=== PATIENT | male | born 1940 | race Caucasian/White ===

== ENCOUNTER 2018-05-02 16:52 | Inpatient (IN) | payer MEDICARE, BC, OTHER ==
[~2018-05-02] VITALS: Ht 177.8 cm; Wt 120.4 kg
[~2018-05-02 16:52] MED LIST: ALLO100T PO; ASPI-10 PO; CARV25TA PO; CHOL400T57 PO; CLOP75TA35 PO; CYA500T PO; FISH12002 PO; FURO40TA4 PO; GLIP5TAB13 PO; IRON150C5 PO; MAGN64TA8 PO; MULT1TAB PO; NITR0.4T51 SL; OMEG1CAP54 PO; PANT-47 PO; POTA20TA19 PO; SIMV20TA5 PO; SPIR25TA5 PO
[2018-05-02] MEDS ORDERED: normal saline 1000ML IV soln IV ONE (17:30)
[2018-05-02 18:07] LABS: BASOPHILS % (AUTO) 0.3 % (0-1); EOSINOPHILS # (AUTO) 0.4 X10'3 (0-0.9); HEMATOCRIT 35.6 % (42.0-52.0); HEMOGLOBIN 11.9 g/dl (14.0-17.9); LYMPHOCYTES # (AUTO) 1.6 X10'3 (1.1-4.8); LYMPHOCYTES % (AUTO) 13.8 % (21-51); MEAN CORPUSCULAR HEMOGLOBIN 31.2 PG (27.0-31.0); MEAN CORPUSCULAR HGB CONC 33.3 % (33.0-36.5); MEAN CORPUSCULAR VOLUME 93.7 FL (78-98); MEAN PLATELET VOLUME 6.7 FL (7.4-10.4); MONOCYTES # (AUTO) 0.8 X10'3 (0-0.9); MONOCYTES % (AUTO) 6.9 % (2-12); NEUTROPHILS # (AUTO) 8.7 X10'3 (1.8-7.7); PLATELET COUNT 382 X10'3 (140-440); RED CELL DISTRIBUTION WIDTH 14.5 % (11.5-14.5); WHITE BLOOD COUNT 11.5 X10'3 (4.5-11.0)
[2018-05-02 18:23] LABS: PARTIAL THROMBOPLASTIN TIME 33 SECONDS (22-32); PROTHROMBIN TIME 10.6 SECONDS (9.0-12.0)
[2018-05-02 18:34] LABS: ALANINE AMINOTRANSFERASE 17 U/L (12-78); ALBUMIN 3.6 G/DL (3.4-5.0); ALBUMIN/GLOBULIN RATIO 0.8 (1.1-1.5); ALKALINE PHOSPHATASE 73 IU/L (46-116); ANION GAP 11 (8-16); ASPARTATE AMINO TRANSFERASE 11 U/L (10-37); BILIRUBIN,TOTAL 0.5 MG/DL (0.1-1.0); BLOOD UREA NITROGEN 34 MG/DL (7-18); BUN/CREATININE RATIO 15.2 (5.4-32.0); CALCIUM 9.3 MG/DL (8.5-10.1); CHLORIDE 101 MMOL/L (99-107); CREATININE 2.24 MG/DL (0.60-1.10); GLUCOSE 141 MG/DL (70-104); MAGNESIUM 2.7 MG/DL (1.5-2.4); POTASSIUM 4.7 MMOL/L (3.5-5.1); SODIUM 138 MMOL/L (135-145); TOTAL CARBON DIOXIDE 25.7 MMOL/L (24-32); TOTAL PROTEIN 8.4 G/DL (6.4-8.2); eGFR 28 ML/MIN
[2018-05-02] MEDS ORDERED: ondansetron/PF 4mg/2ml inj IV ONE (18:40)
[2018-05-02] MEDS ORDERED: HYDROmorphone inj. 0.5 MG/0.5 ML DISP.SYRIN IV ONE (18:40)
[2018-05-02] MEDS ORDERED: CLOP75TA35 PO (19:08)
[2018-05-02] MEDS ORDERED: HYDR-3965 PO (19:08)
[2018-05-02] MEDS ORDERED: ERGO500014 PO (19:08)
[2018-05-02] MEDS ORDERED: SIMV20TA5 PO (19:08)
[2018-05-02] MEDS ORDERED: FURO-150 PO (19:08)
[2018-05-02] MEDS ORDERED: POTA20TA19 PO ×2 (19:08)
[2018-05-02] MEDS ORDERED: TERB30CR22 TP (19:08)
[2018-05-02] MEDS ORDERED: ALLO100T PO (19:08)
[2018-05-02] MEDS ORDERED: SPIR25TA5 PO (19:08)
[2018-05-02 19:11] LABS: CLARITY,URINE CLEAR (Clear); COLOR,URINE YELLOW (Yellow); GLUCOSE, URINE NEGATIVE (Neg); KETONES,URINE NEGATIVE (Neg); LEUKOCYTE ESTERASE ,URINE NEGATIVE (Neg); NITRITES, URINE NEGATIVE (Neg); OCCULT BLOOD,URINE NEGATIVE (Neg); PH,URINE 7.5 (4.8-8.0); PROTEIN,URINE NEGATIVE (Neg); UROBILINOGEN,URINE 0.2 E.U/dL (0.2-1.0)
[2018-05-02 19:17] LABS: UA COLLECTION TYPE CLN CATCH MIDSTREAM
[2018-05-02] MEDS ORDERED: vancomycin inj 1,000 MG in normal saline 250ml IV soln 250 ML IV ONE (19:30)
[2018-05-02] MEDS ORDERED: vancomycin/NS 1 GM ADD-VANTAGE 250 ML IV ONE (19:34)
[2018-05-02] MEDS ORDERED: acetaminophen 325mg tablet PO PRN (20:10)
[2018-05-02] MEDS ORDERED: magnesium hydroxide 30ml (MOM) UD suspension PO PRN (20:10)
[2018-05-02] MEDS ORDERED: dextrose ORAL solution 15 GM/59 ML bottle PO PRN ×2 (20:10)
[2018-05-02] MEDS ORDERED: insulin Lispro (HumaLOG) vial - multi-dose SQ SCH (20:10)
[2018-05-02] MEDS ORDERED: glucagon, human recombinant 1mg kit SUBCUT PRN (20:10)
[2018-05-02] MEDS ORDERED: nitroGLYCERIN 0.4mg SUBLingual tab SL PRN (20:10)
[2018-05-02] MEDS ORDERED: dextrose 50%-water 50ml dispensing syringe IV PRN ×2 (20:10)
[2018-05-02] MEDS ORDERED: MESSAGE TO PHARMACY PO ONE (20:10)
[2018-05-02 20:32] LABS: HEMOGLOBIN A1C 7.8 % (4.5-6.2)
[2018-05-02] MEDS ORDERED: vancomycin inj 500 MG in normal saline 100ml IV soln 100 ML IV ONE (20:55)
[2018-05-02] MEDS: normal saline 1000ml 1,000 ML IV SCH (20:57)
[2018-05-02] MEDS: furosemide 40mg tablet PO SCH (20:58)
[2018-05-02] MEDS: HYDROcodone/acetaminophen 5mg/325mg tablet PO PRN (20:58)
[2018-05-02] MEDS: spironolactone 25 MG tablet PO SCH (20:58)
[2018-05-02] MEDS: atorvastatin 10mg tablet PO SCH (20:58)
[2018-05-02] MEDS ORDERED: vancomycin/NS 1 GM ADD-VANTAGE 250 ML X 1 DOSE IV ONE (21:05)
[2018-05-02] MEDS: ciprofloxacin 250mg tablet PO SCH (21:53)
[2018-05-02 23:00] VITALS: BP 125/66
[2018-05-03] MEDS: HYDROcodone/acetaminophen 5mg/325mg tablet PO PRN ×4 (02:24→20:36)
[2018-05-03 06:25] LABS: BASOPHILS % (AUTO) 0.5 % (0-1); EOSINOPHILS # (AUTO) 0.4 X10'3 (0-0.9); HEMOGLOBIN 10.3 g/dl (14.0-17.9); LYMPHOCYTES # (AUTO) 1.1 X10'3 (1.1-4.8); LYMPHOCYTES % (AUTO) 13.2 % (21-51); MEAN CORPUSCULAR HEMOGLOBIN 31.1 PG (27.0-31.0); MEAN CORPUSCULAR HGB CONC 33.1 % (33.0-36.5); MEAN CORPUSCULAR VOLUME 93.9 FL (78-98); MEAN PLATELET VOLUME 6.7 FL (7.4-10.4); MONOCYTES # (AUTO) 0.7 X10'3 (0-0.9); NEUTROPHILS # (AUTO) 6.2 X10'3 (1.8-7.7); NEUTROPHILS % (AUTO) 73.3 % (42-75); PLATELET COUNT 316 X10'3 (140-440); RED CELL DISTRIBUTION WIDTH 14.4 % (11.5-14.5); WHITE BLOOD COUNT 8.5 X10'3 (4.5-11.0)
[2018-05-03 06:43] LABS: ANION GAP 9 (8-16); BLOOD UREA NITROGEN 27 MG/DL (7-18); BUN/CREATININE RATIO 14.1 (5.4-32.0); CHLORIDE 106 MMOL/L (99-107); CREATININE 1.91 MG/DL (0.60-1.10); GLUCOSE 130 MG/DL (70-104); POTASSIUM 3.6 MMOL/L (3.5-5.1); SODIUM 139 MMOL/L (135-145); TOTAL CARBON DIOXIDE 23.6 MMOL/L (24-32); eGFR 34 ML/MIN
[2018-05-03 06:44] LABS: ALANINE AMINOTRANSFERASE 12 U/L (12-78); ALBUMIN 2.9 G/DL (3.4-5.0); ALBUMIN/GLOBULIN RATIO 0.7 (1.1-1.5); ALKALINE PHOSPHATASE 59 IU/L (46-116); ASPARTATE AMINO TRANSFERASE 9 U/L (10-37); BILIRUBIN,TOTAL 0.4 MG/DL (0.1-1.0); CALCIUM 8.3 MG/DL (8.5-10.1)
[2018-05-03] MEDS ORDERED: OMEGA-3/DHA/EPA/FISH OIL 1 EACH CAPSULE.DR PO SCH (07:30)
[2018-05-03 07:33] VITALS: BP 108/57
[2018-05-03] MEDS ORDERED: clopidogrel 75mg tablet PO SCH (08:00)
[2018-05-03] MEDS: furosemide 40mg tablet PO SCH ×3 (08:11→20:36)
[2018-05-03] MEDS: carVEDilol 12.5mg tablet PO SCH ×2 (08:11→19:24)
[2018-05-03] MEDS: potassium Cl 20 mEq SR tablet PO SCH ×2 (08:11→16:24)
[2018-05-03] MEDS: pantoprazole 40mg Tablet.DR PO SCH (08:11)
[2018-05-03] MEDS: allopurinol 100mg tablet PO SCH (08:11)
[2018-05-03] MEDS: heparin, porcine 5000 units/ml vial SQ SCH ×2 (08:13→19:25)
[2018-05-03] MEDS ORDERED: magnesium Cl slow-release 64mg tablet PO PRN (09:35)
[2018-05-03] MEDS ORDERED: potassium Cl 40MEQ/NS 500ml 500 ML IV PRN ×2 (09:35)
[2018-05-03] MEDS ORDERED: potassium Cl 20 mEq SR tablet PO PRN ×2 (09:35)
[2018-05-03] MEDS ORDERED: magnesium 4gm in 100ml NS 100 ML IV PRN (09:35)
[2018-05-03] MEDS: ciprofloxacin 250mg tablet PO SCH (10:21)
[2018-05-03 11:00] VITALS: BP 112/56
[2018-05-03] MEDS ORDERED: FERR325T28 PO (11:20)
[2018-05-03] MEDS ORDERED: ASPI-1264 PO (11:20)
[2018-05-03] MEDS ORDERED: LORA10TA65 PO (12:27)
[2018-05-03] MEDS: loratadine 10mg tablet PO PRN (13:09)
[2018-05-03] MEDS: piperacillin/tazo 3.375gm/50ml 50 ML IV SCH ×2 (14:13→19:24)
[2018-05-03] MEDS: lactobacillus rhamnosus 10,000 MMU CELLS/CAPSULE PO SCH (19:24)
[2018-05-03 20:00] VITALS: BP 125/64
[2018-05-03] MEDS: atorvastatin 10mg tablet PO SCH (20:37)
[2018-05-04] VITALS: BP 114/44
[2018-05-04] MEDS: piperacillin/tazo 3.375gm/50ml 50 ML IV SCH ×3 (01:14→14:50)
[2018-05-04] MEDS: HYDROcodone/acetaminophen 5mg/325mg tablet PO PRN ×3 (01:18→19:20)
[2018-05-04 06:24] LABS: BASOPHILS # (AUTO) 0.1 X10'3 (0-0.2); BASOPHILS % (AUTO) 0.7 % (0-1); EOSINOPHILS # (AUTO) 0.5 X10'3 (0-0.9); EOSINOPHILS % (AUTO) 7.3 % (0-6); HEMATOCRIT 30.2 % (42.0-52.0); HEMOGLOBIN 10.1 g/dl (14.0-17.9); LYMPHOCYTES # (AUTO) 1.3 X10'3 (1.1-4.8); MEAN CORPUSCULAR HEMOGLOBIN 31.2 PG (27.0-31.0); MEAN CORPUSCULAR HGB CONC 33.4 % (33.0-36.5); MEAN CORPUSCULAR VOLUME 93.4 FL (78-98); MEAN PLATELET VOLUME 7.1 FL (7.4-10.4); MONOCYTES # (AUTO) 0.6 X10'3 (0-0.9); MONOCYTES % (AUTO) 8.3 % (2-12); NEUTROPHILS # (AUTO) 4.9 X10'3 (1.8-7.7); NEUTROPHILS % (AUTO) 65.7 % (42-75); PLATELET COUNT 307 X10'3 (140-440); RED BLOOD COUNT 3.23 X10'6 (4.70-6.10); RED CELL DISTRIBUTION WIDTH 14.4 % (11.5-14.5); WHITE BLOOD COUNT 7.5 X10'3 (4.5-11.0)
[2018-05-04 06:52] LABS: ALANINE AMINOTRANSFERASE 14 U/L (12-78); ALBUMIN 2.8 G/DL (3.4-5.0); ALBUMIN/GLOBULIN RATIO 0.7 (1.1-1.5); ALKALINE PHOSPHATASE 54 IU/L (46-116); ANION GAP 10 (8-16); ASPARTATE AMINO TRANSFERASE 11 U/L (10-37); BILIRUBIN,TOTAL 0.6 MG/DL (0.1-1.0); BLOOD UREA NITROGEN 26 MG/DL (7-18); BUN/CREATININE RATIO 12.3 (5.4-32.0); CALCIUM 8.3 MG/DL (8.5-10.1); CHLORIDE 103 MMOL/L (99-107); CREATININE 2.11 MG/DL (0.60-1.10); GLUCOSE 135 MG/DL (70-104); MAGNESIUM 2.1 MG/DL (1.5-2.4); PHOSPHORUS 3.2 MG/DL (2.3-4.5); POTASSIUM 3.6 MMOL/L (3.5-5.1); SODIUM 139 MMOL/L (135-145); TOTAL CARBON DIOXIDE 26.1 MMOL/L (24-32); eGFR 30 ML/MIN
[2018-05-04] MEDS: allopurinol 100mg tablet PO SCH (07:41)
[2018-05-04] MEDS: clopidogrel 75mg tablet PO SCH (07:41)
[2018-05-04] MEDS: furosemide 40mg tablet PO SCH ×3 (07:42→20:33)
[2018-05-04] MEDS: heparin, porcine 5000 units/ml vial SQ SCH ×2 (07:42→19:16)
[2018-05-04] MEDS: lactobacillus rhamnosus 10,000 MMU CELLS/CAPSULE PO SCH ×2 (07:42→19:14)
[2018-05-04] MEDS: carVEDilol 12.5mg tablet PO SCH ×2 (07:42→19:15)
[2018-05-04] MEDS: potassium Cl 20 mEq SR tablet PO SCH ×2 (07:42→16:21)
[2018-05-04] MEDS: pantoprazole 40mg Tablet.DR PO SCH (07:42)
[2018-05-04 08:00] VITALS: BP 121/62
[2018-05-04] MEDS: loratadine 10mg tablet PO PRN (10:14)
[2018-05-04] MEDS: ondansetron/PF 4mg/2ml inj IV PRN ×2 (11:27→17:51)
[2018-05-04 12:00] VITALS: BP 122/64
[2018-05-04] MEDS: mag hydrox/Alum hydrox/simeth 30ml oral suspension PO PRN (16:21)
[2018-05-04] MEDS ORDERED: metoclopramide 5 mg/ml inj IV ONE (18:50)
[2018-05-04 19:00] VITALS: BP 103/49
[2018-05-04] MEDS: spironolactone 25 MG tablet PO SCH (19:15)
[2018-05-04] MEDS: gabapentin 300mg capsule PO SCH (19:21)
[2018-05-04] MEDS: piperacillin-tazo 2.25gm/50ml 50 ML IV SCH (19:27)
[2018-05-04] MEDS: atorvastatin 10mg tablet PO SCH (20:33)
[2018-05-04] MEDS: normal saline 1000ml 1,000 ML IV SCH (20:34)
[2018-05-04 20:35] VITALS: BP 108/52
[2018-05-05] VITALS: BP 100/56
[2018-05-05] MEDS: piperacillin-tazo 2.25gm/50ml 50 ML IV SCH ×2 (01:31→09:17)
[2018-05-05] MEDS: mag hydrox/Alum hydrox/simeth 30ml oral suspension PO PRN (03:59)
[2018-05-05] MEDS: ondansetron/PF 4mg/2ml inj IV PRN (04:00)
[2018-05-05 06:36] LABS: BASOPHILS # (AUTO) 0.1 X10'3 (0-0.2); BASOPHILS % (AUTO) 0.7 % (0-1); EOSINOPHILS # (AUTO) 0.4 X10'3 (0-0.9); EOSINOPHILS % (AUTO) 5.5 % (0-6); HEMATOCRIT 29.7 % (42.0-52.0); HEMOGLOBIN 9.9 g/dl (14.0-17.9); LYMPHOCYTES # (AUTO) 1.4 X10'3 (1.1-4.8); LYMPHOCYTES % (AUTO) 18.7 % (21-51); MEAN CORPUSCULAR HEMOGLOBIN 30.8 PG (27.0-31.0); MEAN CORPUSCULAR HGB CONC 33.4 % (33.0-36.5); MEAN CORPUSCULAR VOLUME 92.3 FL (78-98); MEAN PLATELET VOLUME 7.6 FL (7.4-10.4); MONOCYTES # (AUTO) 0.6 X10'3 (0-0.9); MONOCYTES % (AUTO) 8.3 % (2-12); NEUTROPHILS # (AUTO) 5.2 X10'3 (1.8-7.7); NEUTROPHILS % (AUTO) 66.8 % (42-75); PLATELET COUNT 320 X10'3 (140-440); RED BLOOD COUNT 3.21 X10'6 (4.70-6.10); RED CELL DISTRIBUTION WIDTH 14.2 % (11.5-14.5); WHITE BLOOD COUNT 7.7 X10'3 (4.5-11.0)
[2018-05-05 07:16] LABS: ALANINE AMINOTRANSFERASE 16 U/L (12-78); ALBUMIN/GLOBULIN RATIO 0.7 (1.1-1.5); ALKALINE PHOSPHATASE 70 IU/L (46-116); ANION GAP 11 (8-16); ASPARTATE AMINO TRANSFERASE 12 U/L (10-37); BILIRUBIN,TOTAL 0.6 MG/DL (0.1-1.0); BLOOD UREA NITROGEN 26 MG/DL (7-18); BUN/CREATININE RATIO 11.2 (5.4-32.0); CALCIUM 8.8 MG/DL (8.5-10.1); CHLORIDE 101 MMOL/L (99-107); CREATININE 2.33 MG/DL (0.60-1.10); GLUCOSE 155 MG/DL (70-104); PHOSPHORUS 2.8 MG/DL (2.3-4.5); POTASSIUM 3.7 MMOL/L (3.5-5.1); SODIUM 137 MMOL/L (135-145); TOTAL CARBON DIOXIDE 25.3 MMOL/L (24-32); TOTAL PROTEIN 7.5 G/DL (6.4-8.2); eGFR 27 ML/MIN
[2018-05-05 08:08] VITALS: BP 126/48
[2018-05-05] MEDS: lactobacillus rhamnosus 10,000 MMU CELLS/CAPSULE PO SCH ×2 (08:26→19:12)
[2018-05-05] MEDS: pantoprazole 40mg Tablet.DR PO SCH (08:27)
[2018-05-05] MEDS: allopurinol 100mg tablet PO SCH (08:27)
[2018-05-05] MEDS: potassium Cl 20 mEq SR tablet PO SCH ×2 (08:27→17:11)
[2018-05-05] MEDS: carVEDilol 12.5mg tablet PO SCH ×2 (08:28→19:12)
[2018-05-05] MEDS: gabapentin 300mg capsule PO SCH ×2 (08:28→19:12)
[2018-05-05] MEDS: furosemide 40mg tablet PO SCH ×2 (08:28→20:34)
[2018-05-05] MEDS: heparin, porcine 5000 units/ml vial SQ SCH ×2 (08:29→19:15)
[2018-05-05] MEDS: loratadine 10mg tablet PO PRN (08:34)
[2018-05-05] MEDS: HYDROcodone/acetaminophen 5mg/325mg tablet PO PRN ×2 (09:16→14:46)
[2018-05-05 11:00] VITALS: BP 127/58
[2018-05-05] MEDS ORDERED: levoFLOXACIN-Levaquin 500mg/D5 100 ML IV SCH (13:30)
[2018-05-05] MEDS: aspirin 81mg tablet.DR PO SCH (14:38)
[2018-05-05] MEDS: metroNIDAZOLE-Flagyl 500mg/NS 100 ML IV SCH ×2 (17:11→23:33)
[2018-05-05] MEDS ORDERED: VANCOMYCIN LEVEL IV ONE (20:30)
[2018-05-05] MEDS: atorvastatin 10mg tablet PO SCH (20:34)
[2018-05-06] VITALS: BP 103/46
[2018-05-06] MEDS: HYDROcodone/acetaminophen 5mg/325mg tablet PO PRN ×2 (01:06→22:07)
[2018-05-06 06:04] LABS: BASOPHILS % (AUTO) 0.4 % (0-1); EOSINOPHILS # (AUTO) 0.5 X10'3 (0-0.9); EOSINOPHILS % (AUTO) 7.3 % (0-6); HEMATOCRIT 29.1 % (42.0-52.0); HEMOGLOBIN 9.7 g/dl (14.0-17.9); LYMPHOCYTES # (AUTO) 1.2 X10'3 (1.1-4.8); LYMPHOCYTES % (AUTO) 17.8 % (21-51); MEAN CORPUSCULAR HEMOGLOBIN 30.9 PG (27.0-31.0); MEAN CORPUSCULAR HGB CONC 33.4 % (33.0-36.5); MEAN CORPUSCULAR VOLUME 92.4 FL (78-98); MEAN PLATELET VOLUME 6.7 FL (7.4-10.4); MONOCYTES # (AUTO) 0.7 X10'3 (0-0.9); NEUTROPHILS # (AUTO) 4.4 X10'3 (1.8-7.7); NEUTROPHILS % (AUTO) 64.5 % (42-75); PLATELET COUNT 339 X10'3 (140-440); RED BLOOD COUNT 3.14 X10'6 (4.70-6.10); RED CELL DISTRIBUTION WIDTH 14.4 % (11.5-14.5); WHITE BLOOD COUNT 6.8 X10'3 (4.5-11.0)
[2018-05-06 06:10] LABS: ALANINE AMINOTRANSFERASE 17 U/L (12-78); ALBUMIN 2.8 G/DL (3.4-5.0); ALBUMIN/GLOBULIN RATIO 0.6 (1.1-1.5); ALKALINE PHOSPHATASE 59 IU/L (46-116); ANION GAP 10 (8-16); ASPARTATE AMINO TRANSFERASE 10 U/L (10-37); BILIRUBIN,TOTAL 0.4 MG/DL (0.1-1.0); BLOOD UREA NITROGEN 30 MG/DL (7-18); BUN/CREATININE RATIO 13.8 (5.4-32.0); CHLORIDE 103 MMOL/L (99-107); CREATININE 2.17 MG/DL (0.60-1.10); GLUCOSE 157 MG/DL (70-104); MAGNESIUM 2.1 MG/DL (1.5-2.4); PHOSPHORUS 3.1 MG/DL (2.3-4.5); POTASSIUM 4.2 MMOL/L (3.5-5.1); SODIUM 139 MMOL/L (135-145); TOTAL CARBON DIOXIDE 26.2 MMOL/L (24-32); TOTAL PROTEIN 7.3 G/DL (6.4-8.2); eGFR 29 ML/MIN
[2018-05-06 07:06] VITALS: BP 113/54
[2018-05-06] MEDS: metroNIDAZOLE-Flagyl 500mg/NS 100 ML IV SCH (08:10)
[2018-05-06] MEDS: lactobacillus rhamnosus 10,000 MMU CELLS/CAPSULE PO SCH ×2 (08:10→20:24)
[2018-05-06] MEDS: potassium Cl 20 mEq SR tablet PO SCH ×2 (08:11→16:43)
[2018-05-06] MEDS: gabapentin 300mg capsule PO SCH ×2 (08:12→20:24)
[2018-05-06] MEDS: aspirin 81mg tablet.DR PO SCH (08:12)
[2018-05-06] MEDS: pantoprazole 40mg Tablet.DR PO SCH (08:12)
[2018-05-06] MEDS: furosemide 40mg tablet PO SCH ×2 (08:12→20:24)
[2018-05-06] MEDS: allopurinol 100mg tablet PO SCH (08:12)
[2018-05-06] MEDS: carVEDilol 12.5mg tablet PO SCH ×2 (08:13→20:24)
[2018-05-06] MEDS: heparin, porcine 5000 units/ml vial SQ SCH ×3 (08:13→21:24)
[2018-05-06 12:00] VITALS: BP 121/77
[2018-05-06] MEDS: metroNIDAZOLE 500mg tablet PO SCH ×2 (16:43→23:22)
[2018-05-06] MEDS: normal saline 1000ml 1,000 ML IV SCH (20:06)
[2018-05-06 20:15] VITALS: BP 122/58
[2018-05-06] MEDS: atorvastatin 10mg tablet PO SCH (20:24)
[2018-05-06] MEDS: spironolactone 25 MG tablet PO SCH (20:24)
[2018-05-06 21:28] VITALS: BP 122/58
[2018-05-07] VITALS (16 sets, daily range): BP systolic 105–137; BP diastolic 50–79
[2018-05-07] MEDS: loratadine 10mg tablet PO PRN (01:03)
[2018-05-07] MEDS: HYDROcodone/acetaminophen 5mg/325mg tablet PO PRN ×3 (06:03→20:42)
[2018-05-07 06:52] LABS: BASOPHILS % (AUTO) 0.4 % (0-1); EOSINOPHILS # (AUTO) 0.6 X10'3 (0-0.9); EOSINOPHILS % (AUTO) 8.9 % (0-6); HEMATOCRIT 30.5 % (42.0-52.0); HEMOGLOBIN 10.1 g/dl (14.0-17.9); LYMPHOCYTES # (AUTO) 1.3 X10'3 (1.1-4.8); LYMPHOCYTES % (AUTO) 21.2 % (21-51); MEAN CORPUSCULAR HEMOGLOBIN 30.7 PG (27.0-31.0); MEAN CORPUSCULAR VOLUME 92.9 FL (78-98); MEAN PLATELET VOLUME 6.9 FL (7.4-10.4); MONOCYTES # (AUTO) 0.5 X10'3 (0-0.9); MONOCYTES % (AUTO) 8.6 % (2-12); NEUTROPHILS # (AUTO) 3.8 X10'3 (1.8-7.7); NEUTROPHILS % (AUTO) 60.9 % (42-75); PLATELET COUNT 361 X10'3 (140-440); RED BLOOD COUNT 3.28 X10'6 (4.70-6.10); RED CELL DISTRIBUTION WIDTH 14.7 % (11.5-14.5); WHITE BLOOD COUNT 6.2 X10'3 (4.5-11.0)
[2018-05-07 06:55] LABS: ALANINE AMINOTRANSFERASE 19 U/L (12-78); ALBUMIN/GLOBULIN RATIO 0.7 (1.1-1.5); ALKALINE PHOSPHATASE 62 IU/L (46-116); ANION GAP 11 (8-16); ASPARTATE AMINO TRANSFERASE 20 U/L (10-37); BILIRUBIN,TOTAL 0.4 MG/DL (0.1-1.0); BLOOD UREA NITROGEN 32 MG/DL (7-18); CALCIUM 9.4 MG/DL (8.5-10.1); CHLORIDE 102 MMOL/L (99-107); GLUCOSE 144 MG/DL (70-104); MAGNESIUM 2.1 MG/DL (1.5-2.4); PHOSPHORUS 3.7 MG/DL (2.3-4.5); POTASSIUM 3.8 MMOL/L (3.5-5.1); SODIUM 139 MMOL/L (135-145); TOTAL CARBON DIOXIDE 26.5 MMOL/L (24-32); TOTAL PROTEIN 7.6 G/DL (6.4-8.2); eGFR 32 ML/MIN
[2018-05-07] MEDS: heparin, porcine 5000 units/ml vial SQ SCH ×2 (08:00→20:44)
[2018-05-07] MEDS: aspirin 81mg tablet.DR PO SCH (08:00)
[2018-05-07] MEDS: potassium Cl 20 mEq SR tablet PO SCH ×2 (08:00→17:00)
[2018-05-07] MEDS: furosemide 40mg tablet PO SCH ×2 (08:00→20:43)
[2018-05-07] MEDS: gabapentin 300mg capsule PO SCH ×2 (08:49→20:42)
[2018-05-07] MEDS: carVEDilol 12.5mg tablet PO SCH ×2 (08:50→20:43)
[2018-05-07] MEDS: pantoprazole 40mg Tablet.DR PO SCH (08:50)
[2018-05-07] MEDS: metroNIDAZOLE 500mg tablet PO SCH ×3 (08:50→23:38)
[2018-05-07] MEDS: allopurinol 100mg tablet PO SCH (08:50)
[2018-05-07] MEDS: lactobacillus rhamnosus 10,000 MMU CELLS/CAPSULE PO SCH ×2 (08:50→20:42)
[2018-05-07] MEDS: levoFLOXACIN 500mg tablet PO SCH (11:35)
[2018-05-07] MEDS ORDERED: BUPIVAcaine/PF 2.5mg/ml (0.25%) 10ml vial ONE (13:54)
[2018-05-07] MEDS ORDERED: midazolam 2 mg/2 ml injection ONE (15:11)
[2018-05-07] MEDS ORDERED: etomidate 2mg/ml inj. ONE ×3 (15:11→15:15)
[2018-05-07] MEDS ORDERED: fentaNYL/PF 50MCG/1 ML 2ML syringe ONE (15:11)
[2018-05-07] MEDS ORDERED: ringers solution, lacted 1,000 ML IV SCH (15:14)
[2018-05-07] MEDS ORDERED: ondansetron/PF 4mg/2ml inj IV PRN (15:15)
[2018-05-07] MEDS ORDERED: morphine 4 MG/ML inj SYRINge IV PRN ×2 (15:15)
[2018-05-07] MEDS ORDERED: hydrALAZINE 20mg/ml inj. IV PRN (15:15)
[2018-05-07] MEDS ORDERED: fentaNYL/PF 50MCG/1 ML 2ML syringe IV PRN ×2 (15:15)
[2018-05-07] MEDS ORDERED: sevoflurane 250ml liquid IH ONE (15:15)
[2018-05-07] MEDS ORDERED: labetalol 20mg/4ml (5mg/ml) syringe IV PRN (15:15)
[2018-05-07] MEDS: normal saline 1000ml 1,000 ML IV SCH (17:22)
[2018-05-07] MEDS: atorvastatin 10mg tablet PO SCH (20:43)
[2018-05-08] VITALS: BP 118/59
[2018-05-08] MEDS: HYDROcodone/acetaminophen 5mg/325mg tablet PO PRN ×4 (01:23→17:22)
[2018-05-08 06:07] LABS: BASOPHILS % (AUTO) 0.7 % (0-1); EOSINOPHILS # (AUTO) 0.6 X10'3 (0-0.9); EOSINOPHILS % (AUTO) 8.5 % (0-6); HEMATOCRIT 30.5 % (42.0-52.0); HEMOGLOBIN 10.1 g/dl (14.0-17.9); LYMPHOCYTES # (AUTO) 1.2 X10'3 (1.1-4.8); LYMPHOCYTES % (AUTO) 16.7 % (21-51); MEAN CORPUSCULAR HEMOGLOBIN 30.5 PG (27.0-31.0); MEAN CORPUSCULAR HGB CONC 33.1 % (33.0-36.5); MEAN CORPUSCULAR VOLUME 92.3 FL (78-98); MEAN PLATELET VOLUME 6.3 FL (7.4-10.4); MONOCYTES # (AUTO) 0.6 X10'3 (0-0.9); MONOCYTES % (AUTO) 8.9 % (2-12); NEUTROPHILS # (AUTO) 4.6 X10'3 (1.8-7.7); NEUTROPHILS % (AUTO) 65.2 % (42-75); PLATELET COUNT 413 X10'3 (140-440); RED CELL DISTRIBUTION WIDTH 14.4 % (11.5-14.5)
[2018-05-08 06:23] LABS: ANION GAP 9 (8-16); BLOOD UREA NITROGEN 25 MG/DL (7-18); BUN/CREATININE RATIO 13.2 (5.4-32.0); CHLORIDE 102 MMOL/L (99-107); CREATININE 1.89 MG/DL (0.60-1.10); GLUCOSE 139 MG/DL (70-104); PHOSPHORUS 3.6 MG/DL (2.3-4.5); POTASSIUM 3.6 MMOL/L (3.5-5.1); SODIUM 139 MMOL/L (135-145); TOTAL CARBON DIOXIDE 27.6 MMOL/L (24-32); eGFR 34 ML/MIN
[2018-05-08 07:00] VITALS: BP 122/56
[2018-05-08 07:37] VITALS: BP 128/57
[2018-05-08] MEDS: potassium Cl 20 mEq SR tablet PO SCH ×2 (08:27→16:15)
[2018-05-08] MEDS: pantoprazole 40mg Tablet.DR PO SCH (08:27)
[2018-05-08] MEDS: aspirin 81mg tablet.DR PO SCH (08:27)
[2018-05-08] MEDS: carVEDilol 12.5mg tablet PO SCH ×2 (08:27→21:42)
[2018-05-08] MEDS: metroNIDAZOLE 500mg tablet PO SCH ×2 (08:27→16:15)
[2018-05-08] MEDS: allopurinol 100mg tablet PO SCH (08:28)
[2018-05-08] MEDS: furosemide 40mg tablet PO SCH ×2 (08:28→21:41)
[2018-05-08] MEDS: loratadine 10mg tablet PO PRN (08:28)
[2018-05-08] MEDS: gabapentin 300mg capsule PO SCH ×2 (08:28→21:41)
[2018-05-08] MEDS: heparin, porcine 5000 units/ml vial SQ SCH ×2 (08:29→21:42)
[2018-05-08] MEDS: lactobacillus rhamnosus 10,000 MMU CELLS/CAPSULE PO SCH ×2 (08:29→21:42)
[2018-05-08 11:00] VITALS: BP 111/61
[2018-05-08 13:27] VITALS: BP 97/48
[2018-05-08 19:31] VITALS: BP 110/52
[2018-05-08] MEDS: normal saline 1000ml 1,000 ML IV SCH (20:06)
[2018-05-08] MEDS: spironolactone 25 MG tablet PO SCH (21:41)
[2018-05-08] MEDS: atorvastatin 10mg tablet PO SCH (21:41)
[2018-05-09] VITALS: BP 111/60
[2018-05-09] MEDS: HYDROcodone/acetaminophen 5mg/325mg tablet PO PRN ×5 (00:17→20:49)
[2018-05-09] MEDS: metroNIDAZOLE 500mg tablet PO SCH ×3 (00:17→16:15)
[2018-05-09 06:42] LABS: ALBUMIN 2.7 G/DL (3.4-5.0); ANION GAP 11 (8-16); BLOOD UREA NITROGEN 26 MG/DL (7-18); BUN/CREATININE RATIO 12.4 (5.4-32.0); CALCIUM 8.8 MG/DL (8.5-10.1); CHLORIDE 103 MMOL/L (99-107); CREATININE 2.09 MG/DL (0.60-1.10); GLUCOSE 163 MG/DL (70-104); POTASSIUM 3.7 MMOL/L (3.5-5.1); SODIUM 139 MMOL/L (135-145); TOTAL CARBON DIOXIDE 24.6 MMOL/L (24-32); eGFR 31 ML/MIN
[2018-05-09 06:46] LABS: HEMATOCRIT 27.8 % (42.0-52.0); HEMOGLOBIN 9.9 g/dl (14.0-17.9); MEAN CORPUSCULAR HEMOGLOBIN 33.1 PG (27.0-31.0); MEAN CORPUSCULAR HGB CONC 35.7 % (33.0-36.5); MEAN CORPUSCULAR VOLUME 92.8 FL (78-98); RED BLOOD COUNT 2.99 X10'6 (4.70-6.10); RED CELL DISTRIBUTION WIDTH 13.6 % (11.5-14.5); WHITE BLOOD COUNT 6.4 X10'3 (4.5-11.0)
[2018-05-09 06:47] LABS: BASOPHILS % (AUTO) 0.7 % (0-1); EOSINOPHILS # (AUTO) 0.5 X10'3 (0-0.9); EOSINOPHILS % (AUTO) 8.3 % (0-6); LYMPHOCYTES # (AUTO) 1.4 X10'3 (1.1-4.8); LYMPHOCYTES % (AUTO) 21.8 % (21-51); MEAN PLATELET VOLUME 6.8 FL (7.4-10.4); MONOCYTES # (AUTO) 0.6 X10'3 (0-0.9); MONOCYTES % (AUTO) 9.4 % (2-12); NEUTROPHILS # (AUTO) 3.9 X10'3 (1.8-7.7); NEUTROPHILS % (AUTO) 59.8 % (42-75); PLATELET COUNT 332 X10'3 (140-440)
[2018-05-09 07:11] VITALS: BP 113/53
[2018-05-09] MEDS: pantoprazole 40mg Tablet.DR PO SCH (09:03)
[2018-05-09] MEDS: furosemide 40mg tablet PO SCH ×2 (09:03→20:51)
[2018-05-09] MEDS: aspirin 81mg tablet.DR PO SCH (09:04)
[2018-05-09] MEDS: gabapentin 300mg capsule PO SCH ×2 (09:04→20:51)
[2018-05-09] MEDS: allopurinol 100mg tablet PO SCH (09:05)
[2018-05-09] MEDS: lactobacillus rhamnosus 10,000 MMU CELLS/CAPSULE PO SCH ×2 (09:05→20:50)
[2018-05-09] MEDS: potassium Cl 20 mEq SR tablet PO SCH ×2 (09:05→16:15)
[2018-05-09] MEDS: clopidogrel 75mg tablet PO SCH (09:06)
[2018-05-09] MEDS: carVEDilol 12.5mg tablet PO SCH ×2 (09:06→20:51)
[2018-05-09] MEDS: heparin, porcine 5000 units/ml vial SQ SCH ×2 (09:07→20:51)
[2018-05-09 11:00] VITALS: BP 101/43
[2018-05-09] MEDS: levoFLOXACIN 500mg tablet PO SCH (11:13)
[2018-05-09] MEDS ORDERED: polyvinyl alcohol ophthalmic drops 15ml bottle EACHEYE PRN (11:40)
[2018-05-09 12:42] VITALS: BP 108/63
[2018-05-09 18:00] VITALS: BP 109/59
[2018-05-09] MEDS: atorvastatin 10mg tablet PO SCH (20:51)
[2018-05-10] VITALS: BP 116/72
[2018-05-10] MEDS: metroNIDAZOLE 500mg tablet PO SCH ×2 (00:20→08:41)
[2018-05-10] MEDS: normal saline 1000ml 1,000 ML IV SCH (00:20)
[2018-05-10] MEDS: HYDROcodone/acetaminophen 5mg/325mg tablet PO PRN (01:07)
[2018-05-10 06:09] LABS: BASOPHILS % (AUTO) 0.7 % (0-1); EOSINOPHILS # (AUTO) 0.6 X10'3 (0-0.9); EOSINOPHILS % (AUTO) 9.7 % (0-6); HEMATOCRIT 29.3 % (42.0-52.0); HEMOGLOBIN 9.8 g/dl (14.0-17.9); LYMPHOCYTES # (AUTO) 1.2 X10'3 (1.1-4.8); LYMPHOCYTES % (AUTO) 20.2 % (21-51); MEAN CORPUSCULAR HEMOGLOBIN 31.1 PG (27.0-31.0); MEAN CORPUSCULAR HGB CONC 33.5 % (33.0-36.5); MEAN CORPUSCULAR VOLUME 92.9 FL (78-98); MEAN PLATELET VOLUME 6.7 FL (7.4-10.4); MONOCYTES # (AUTO) 0.5 X10'3 (0-0.9); MONOCYTES % (AUTO) 8.8 % (2-12); NEUTROPHILS # (AUTO) 3.7 X10'3 (1.8-7.7); NEUTROPHILS % (AUTO) 60.6 % (42-75); PLATELET COUNT 404 X10'3 (140-440); RED BLOOD COUNT 3.16 X10'6 (4.70-6.10); RED CELL DISTRIBUTION WIDTH 14.4 % (11.5-14.5); WHITE BLOOD COUNT 6.2 X10'3 (4.5-11.0)
[2018-05-10 06:22] LABS: ALBUMIN 2.9 G/DL (3.4-5.0); ANION GAP 13 (8-16); BLOOD UREA NITROGEN 28 MG/DL (7-18); BUN/CREATININE RATIO 14.4 (5.4-32.0); CALCIUM 9.1 MG/DL (8.5-10.1); CHLORIDE 102 MMOL/L (99-107); CREATININE 1.94 MG/DL (0.60-1.10); GLUCOSE 145 MG/DL (70-104); SODIUM 140 MMOL/L (135-145); TOTAL CARBON DIOXIDE 25.4 MMOL/L (24-32); eGFR 33 ML/MIN
[2018-05-10 07:00] VITALS: BP 116/56
[2018-05-10] MEDS: carVEDilol 12.5mg tablet PO SCH (08:39)
[2018-05-10] MEDS: aspirin 81mg tablet.DR PO SCH (08:40)
[2018-05-10] MEDS: lactobacillus rhamnosus 10,000 MMU CELLS/CAPSULE PO SCH (08:40)
[2018-05-10] MEDS: potassium Cl 20 mEq SR tablet PO SCH (08:42)
[2018-05-10] MEDS: pantoprazole 40mg Tablet.DR PO SCH (08:43)
[2018-05-10] MEDS: furosemide 40mg tablet PO SCH (08:43)
[2018-05-10] MEDS: allopurinol 100mg tablet PO SCH (08:43)
[2018-05-10] MEDS: gabapentin 300mg capsule PO SCH (08:43)
[2018-05-10] MEDS: heparin, porcine 5000 units/ml vial SQ SCH (08:45)
[2018-05-10] MEDS ORDERED: CLIN150C2 PO (11:28)
[2018-05-10 11:30] VITALS: BP 118/59
== END 2018-05-10 12:50 | disposition home health service (06) | DRG 616 ==
LOC: ER 16:52 → ED HOLD 20:06 → EDBEDREQ 22:21 → SUR 3N 22:40
PROVIDERS: ADMIT Internal Medicine; ATTEND Family Medicine
PROC: CW1D1ZZ Planar Nuclear Medicine Imaging of Lower Extremity using Technetium 99m (Tc-99m) (ICD-10-PCS; 2018-05-03)
PROC: 0JBQ0ZZ Excision of Right Foot Subcutaneous Tissue and Fascia, Open Approach (ICD-10-PCS; 2018-05-07)
PROC: 0Y6Q0Z1 Detachment at Left 1st Toe, High, Open Approach (ICD-10-PCS; principal; 2018-05-07 15:15)
DX: E11.69 Type 2 diabetes mellitus with other specified complication (principal); J18.1 Lobar pneumonia, unspecified organism; I13.0 Hypertensive heart and chronic kidney disease with heart failure and stage 1 through stage 4 chronic kidney disease, or unspecified chronic kidney disease; J44.0 Chronic obstructive pulmonary disease with (acute) lower respiratory infection; L03.115 Cellulitis of right lower limb; L03.116 Cellulitis of left lower limb; M86.8X8 Other osteomyelitis, other site; N17.9 Acute kidney failure, unspecified; E11.621 Type 2 diabetes mellitus with foot ulcer; E11.22 Type 2 diabetes mellitus with diabetic chronic kidney disease; N18.3 Chronic kidney disease, stage 3 (moderate); D63.8 Anemia in other chronic diseases classified elsewhere; E11.21 Type 2 diabetes mellitus with diabetic nephropathy; E11.40 Type 2 diabetes mellitus with diabetic neuropathy, unspecified; G89.29 Other chronic pain; K57.90 Diverticulosis of intestine, part unspecified, without perforation or abscess without bleeding; M10.9 Gout, unspecified; M54.9 Dorsalgia, unspecified; E78.00 Pure hypercholesterolemia, unspecified; E78.5 Hyperlipidemia, unspecified; G47.30 Sleep apnea, unspecified; I25.10 Atherosclerotic heart disease of native coronary artery without angina pectoris; I48.91 Unspecified atrial fibrillation; I50.9 Heart failure, unspecified; L97.519 Non-pressure chronic ulcer of other part of right foot with unspecified severity; E11.51 Type 2 diabetes mellitus with diabetic peripheral angiopathy without gangrene; L97.529 Non-pressure chronic ulcer of other part of left foot with unspecified severity; Z98.61 Coronary angioplasty status; Z95.0 Presence of cardiac pacemaker; Z88.2 Allergy status to sulfonamides; Z88.5 Allergy status to narcotic agent; Z90.49 Acquired absence of other specified parts of digestive tract; Z79.899 Other long term (current) drug therapy; Z79.02 Long term (current) use of antithrombotics/antiplatelets; Z79.82 Long term (current) use of aspirin; Z87.891 Personal history of nicotine dependence; Z82.3 Family history of stroke; Z82.49 Family history of ischemic heart disease and other diseases of the circulatory system; Z80.9 Family history of malignant neoplasm, unspecified; Z82.5 Family history of asthma and other chronic lower respiratory diseases
CPT/HCPCS: 36415; 71045; 73620; 78315; 80048; 80053; 80202; 81003; 82948; 83036; 83605; 83735; 84100; 84145; 85025; 85610; 85730; 87040; 87070; 93005; 96365; 96375; 97110; 97116; 97162; 99285; A6222; A6446; A6449; A7000; A9503; G0378; J1170; J1644; J1956; J2250; J2405; J2543; J2765; J3010; J3370; J3490; J7030; J7120

== ENCOUNTER 2018-06-07 11:04 | Inpatient (IN) | payer MEDICARE, BC, OTHER ==
[~2018-06-07] VITALS: Ht 177.8 cm; Wt 116.5 kg
[~2018-06-07 11:04] MED LIST changes: -ASPI-10 PO; +ASPI-1264 PO; -CHOL400T57 PO; +CLIN150C2 PO; +ERGO500014 PO; +FERR325T28 PO; +FURO-150 PO; -FURO40TA4 PO; +HYDR-3965 PO; -IRON150C5 PO; +LORA10TA65 PO; -MAGN64TA8 PO; -OMEG1CAP54 PO; +TERB30CR22 TP
[2018-06-07] MEDS ORDERED: piperacillin/tazo 3.375gm/50ml 50 ML IV STA (12:13)
[2018-06-07 12:48] LABS: BASOPHILS % (AUTO) 0.7 % (0-1); EOSINOPHILS # (AUTO) 0.6 X10'3 (0-0.9); EOSINOPHILS % (AUTO) 9.6 % (0-6); HEMATOCRIT 32.1 % (42.0-52.0); HEMOGLOBIN 10.6 g/dl (14.0-17.9); LYMPHOCYTES # (AUTO) 1.5 X10'3 (1.1-4.8); LYMPHOCYTES % (AUTO) 23.2 % (21-51); MEAN CORPUSCULAR HEMOGLOBIN 30.5 PG (27.0-31.0); MEAN CORPUSCULAR HGB CONC 32.9 % (33.0-36.5); MEAN CORPUSCULAR VOLUME 92.7 FL (78-98); MONOCYTES # (AUTO) 0.5 X10'3 (0-0.9); MONOCYTES % (AUTO) 6.9 % (2-12); NEUTROPHILS # (AUTO) 3.9 X10'3 (1.8-7.7); NEUTROPHILS % (AUTO) 59.6 % (42-75); PLATELET COUNT 401 X10'3 (140-440); RED BLOOD COUNT 3.47 X10'6 (4.70-6.10); RED CELL DISTRIBUTION WIDTH 14.5 % (11.5-14.5); WHITE BLOOD COUNT 6.5 X10'3 (4.5-11.0)
[2018-06-07 13:11] LABS: ALBUMIN 3.2 G/DL (3.4-5.0); ANION GAP 13 (8-16); BLOOD UREA NITROGEN 33 MG/DL (7-18); BUN/CREATININE RATIO 18.2 (5.4-32.0); CALCIUM 8.9 MG/DL (8.5-10.1); CHLORIDE 106 MMOL/L (99-107); CREATININE 1.81 MG/DL (0.60-1.10); GLUCOSE 110 MG/DL (70-104); POTASSIUM 4.2 MMOL/L (3.5-5.1); SODIUM 142 MMOL/L (135-145); TOTAL CARBON DIOXIDE 23.2 MMOL/L (24-32); eGFR 36 ML/MIN
[2018-06-07] MEDS ORDERED: potassium Cl 20 mEq SR tablet PO PRN ×2 (14:00)
[2018-06-07] MEDS ORDERED: magnesium 2GM in 50ml NS 50 ML IV PRN (14:00)
[2018-06-07] MEDS ORDERED: magnesium Cl slow-release 64mg tablet PO PRN (14:00)
[2018-06-07] MEDS ORDERED: magnesium 4gm in 100ml NS 100 ML IV PRN (14:00)
[2018-06-07] MEDS ORDERED: potassium Cl 40MEQ/NS 500ml 500 ML IV PRN ×2 (14:00)
[2018-06-07] MEDS ORDERED: acetaminophen 325mg tablet PO PRN (14:00)
[2018-06-07] MEDS ORDERED: glucagon, human recombinant 1mg kit SUBCUT PRN (14:35)
[2018-06-07] MEDS ORDERED: insulin Lispro (HumaLOG) vial - multi-dose SQ SCH (14:35)
[2018-06-07] MEDS ORDERED: dextrose ORAL solution 15 GM/59 ML bottle PO PRN ×2 (14:35)
[2018-06-07] MEDS ORDERED: MESSAGE TO PHARMACY PO ONE (14:35)
[2018-06-07] MEDS ORDERED: dextrose 50%-water 50ml dispensing syringe IV PRN ×2 (14:35)
[2018-06-07] MEDS: normal saline 1000ml 1,000 ML IV SCH ×2 (15:14→21:39)
[2018-06-07] MEDS: morphine 4 MG/ML inj SYRINge IV PRN (17:59)
--- NOTE | 2018-06-07 18:44 | NUR ---
Sitting up on side of bed, dinner tray given. Denies current pain or new issues or concerns at this time.
--- NOTE | 2018-06-07 18:45 | NUR ---
Med rec per previous RN
--- NOTE | 2018-06-07 19:39 | NUR ---
Rec'd pt report from Jack in ER. Had opportunity to ask questions. Pt to come up to surgical floor.
[2018-06-07 21:00] VITALS: BP 137/69
[2018-06-07] MEDS ORDERED: temazepam 15mg capsule PO PRN (21:00)
[2018-06-07] MEDS: insulin glargine (Lantus) pen - multi-dose SQ SCH (21:00)
--- NOTE | 2018-06-07 21:30 | NUR ---
Removed and redressed wounds to bilateral great toes. Patient has partial amputation of left great toe with a diabetic ulcer on the pad of the great tow. He also has a diabetic ulcer to the right great toe pad. Partial amputation was preformed on 05/[address] Stock. The patient follows up with wound care clinic two days per week. The left great toe was dressed with xeroform and kerlix. The right great toe with a wide band-aid. Re-dressed the same. Photos placed in chart.
[2018-06-07] MEDS: carVEDilol 12.5mg tablet PO SCH (21:40)
[2018-06-07] MEDS: heparin, porcine 5000 units/ml vial SQ SCH (21:40)
[2018-06-07] MEDS: docusate sod 100mg capsule PO SCH (21:41)
[2018-06-07] MEDS: atorvastatin 10mg tablet PO SCH (21:41)
[2018-06-07] MEDS: HYDROcodone/acetaminophen 5mg/325mg tablet PO PRN (22:46)
[2018-06-08] VITALS: BP 125/62
--- NOTE | 2018-06-08 02:30 | NUR ---
Patient wanted 0.5 mg morphine rather than 1 mg. Wasted an additional 0.5 mg with CYNDI Holden.
[2018-06-08] MEDS: morphine 4 MG/ML inj SYRINge IV PRN (02:31)
[2018-06-08 06:50] LABS: BASOPHILS % (AUTO) 0.5 % (0-1); EOSINOPHILS # (AUTO) 0.9 X10'3 (0-0.9); EOSINOPHILS % (AUTO) 11.9 % (0-6); HEMATOCRIT 29.9 % (42.0-52.0); HEMOGLOBIN 10.1 g/dl (14.0-17.9); LYMPHOCYTES % (AUTO) 13.4 % (21-51); MEAN CORPUSCULAR HEMOGLOBIN 31.3 PG (27.0-31.0); MEAN CORPUSCULAR HGB CONC 33.7 % (33.0-36.5); MEAN CORPUSCULAR VOLUME 92.9 FL (78-98); MEAN PLATELET VOLUME 7.1 FL (7.4-10.4); MONOCYTES # (AUTO) 0.3 X10'3 (0-0.9); MONOCYTES % (AUTO) 4.2 % (2-12); PLATELET COUNT 371 X10'3 (140-440); RED BLOOD COUNT 3.22 X10'6 (4.70-6.10); RED CELL DISTRIBUTION WIDTH 14.7 % (11.5-14.5); WHITE BLOOD COUNT 7.2 X10'3 (4.5-11.0)
[2018-06-08 07:00] VITALS: BP 103/52
[2018-06-08 07:01] LABS: ANION GAP 11 (8-16); BLOOD UREA NITROGEN 32 MG/DL (7-18); BUN/CREATININE RATIO 18.1 (5.4-32.0); CALCIUM 8.6 MG/DL (8.5-10.1); CHLORIDE 107 MMOL/L (99-107); CREATININE 1.77 MG/DL (0.60-1.10); GLUCOSE 137 MG/DL (70-104); POTASSIUM 3.7 MMOL/L (3.5-5.1); SODIUM 142 MMOL/L (135-145); TOTAL CARBON DIOXIDE 24.1 MMOL/L (24-32); eGFR 37 ML/MIN
--- NOTE | 2018-06-08 07:14 | NUR ---
Problems reprioritized. Patient report given, questions answered & plan of care reviewed with CYNDI Haas.
[2018-06-08] MEDS: K and/or MAG REPLACEMENT MC SCH (07:58)
[2018-06-08] MEDS: heparin, porcine 5000 units/ml vial SQ SCH ×2 (08:11→19:22)
[2018-06-08] MEDS: pantoprazole 40mg Tablet.DR PO SCH (08:11)
[2018-06-08] MEDS: clopidogrel 75mg tablet PO SCH (08:11)
[2018-06-08] MEDS: carVEDilol 12.5mg tablet PO SCH ×2 (08:11→19:21)
[2018-06-08] MEDS: aspirin 325mg tablet PO SCH (08:11)
[2018-06-08] MEDS: docusate sod 100mg capsule PO SCH ×2 (08:11→19:21)
[2018-06-08] MEDS: HYDROcodone/acetaminophen 5mg/325mg tablet PO PRN (08:12)
[2018-06-08] MEDS: allopurinol 100mg tablet PO SCH (09:21)
[2018-06-08] MEDS: loratadine 10mg tablet PO SCH (09:21)
[2018-06-08] MEDS: piperacillin/tazo 3.375gm/50ml 50 ML IV SCH ×2 (11:18→16:00)
[2018-06-08] MEDS: HYDROcodone/acetaminophen 10/325mg tab PO PRN (11:37)
[2018-06-08 12:49] VITALS: BP 119/59
[2018-06-08] MEDS ORDERED: Potassium Cl inj 20 MEQ in normal saline 1000ml 1,000 ML IV SCH (13:59)
--- NOTE | 2018-06-08 16:25 | NUR ---
Pt admitted with cellulitis to left great toe. Pt with A1c 7.8 seen at bedside. Pt states he sees an MD at the [facility] q 2-3 months, checks his BG levels 2-3 times a week with resulting numbers 113-150s which is improved from previous BG levels of 300-400 prior to toe amputation per pt. Pt states he takes his DM medications per rx w/o difficulties. Pt given written protein and DM education with referral to outpatient DM class and RD contact information. Pt endorses a good appetite and states he would like double protein on some meals which he would like to fill in on the menu himself. Pt denies any further food preferences at this time. Pt currently on heart healthy diet, notified MD to add CHO controlled diet to diet order. Will continue to follow. Addendum: 06/08/18 at [address] Amended: Links added.
[2018-06-08] MEDS: ondansetron/PF 4mg/2ml inj IV PRN (17:20)
--- NOTE | 2018-06-08 18:24 | NUR ---
Patient in room [facility]. I have received report from Samina HANNA and had the opportunity to ask questions and assume patient care.
--- NOTE | 2018-06-08 18:24 | NUR ---
Problems reprioritized. Patient report given, questions answered & plan of care reviewed with BRITTANY HANNA.
[2018-06-08] MEDS: linezolid 600mg/300ml PREMIX 300 ML IV SCH (19:20)
[2018-06-08] MEDS: furosemide 20 MG/2 ML vial IV SCH (19:20)
[2018-06-08] MEDS ORDERED: potassium Cl 20 mEq SR tablet PO ONE (19:40)
--- NOTE | 2018-06-08 19:55 | NUR ---
paged Dr. Duncan. Dr. Duncan called back. Told him the pt is SOB, cannot lay down without difficulty and feeling nauseous. Pt vital signs, 96-97% on Room Air, HR 80, 119/59. Told him that pt stated he "feels this way when his heart failure is acting up." Told Dr. Duncan that pt would like to resume his home medications of Lasix and Potassium. New orders given. will continue to monitor.
[2018-06-08 20:00] VITALS: BP 119/59
[2018-06-08] MEDS: atorvastatin 10mg tablet PO SCH (20:50)
[2018-06-08] MEDS: insulin glargine (Lantus) pen - multi-dose SQ SCH (21:00)
[2018-06-09] VITALS: BP 115/50
[2018-06-09] MEDS: piperacillin/tazo 3.375gm/50ml 50 ML IV SCH ×4 (00:11→23:35)
[2018-06-09] MEDS ORDERED: VANCOMYCIN LEVEL IV NR (02:30)
[2018-06-09 06:29] LABS: ANION GAP 12 (8-16); BLOOD UREA NITROGEN 24 MG/DL (7-18); BUN/CREATININE RATIO 12.7 (5.4-32.0); CALCIUM 8.7 MG/DL (8.5-10.1); CHLORIDE 105 MMOL/L (99-107); CREATININE 1.89 MG/DL (0.60-1.10); GLUCOSE 138 MG/DL (70-104); MAGNESIUM 1.9 MG/DL (1.5-2.4); POTASSIUM 3.8 MMOL/L (3.5-5.1); SODIUM 140 MMOL/L (135-145); TOTAL CARBON DIOXIDE 23.1 MMOL/L (24-32); eGFR 34 ML/MIN
[2018-06-09 06:33] LABS: BASOPHILS % (AUTO) 0.6 % (0-1); EOSINOPHILS # (AUTO) 0.7 X10'3 (0-0.9); EOSINOPHILS % (AUTO) 11.2 % (0-6); HEMATOCRIT 28.9 % (42.0-52.0); HEMOGLOBIN 9.5 g/dl (14.0-17.9); LYMPHOCYTES # (AUTO) 1.2 X10'3 (1.1-4.8); LYMPHOCYTES % (AUTO) 19.3 % (21-51); MEAN CORPUSCULAR HEMOGLOBIN 30.6 PG (27.0-31.0); MEAN CORPUSCULAR VOLUME 92.7 FL (78-98); MEAN PLATELET VOLUME 6.9 FL (7.4-10.4); MONOCYTES # (AUTO) 0.4 X10'3 (0-0.9); MONOCYTES % (AUTO) 5.8 % (2-12); NEUTROPHILS # (AUTO) 3.9 X10'3 (1.8-7.7); NEUTROPHILS % (AUTO) 63.1 % (42-75); PLATELET COUNT 353 X10'3 (140-440); RED BLOOD COUNT 3.12 X10'6 (4.70-6.10); RED CELL DISTRIBUTION WIDTH 14.7 % (11.5-14.5); WHITE BLOOD COUNT 6.2 X10'3 (4.5-11.0)
--- NOTE | 2018-06-09 06:45 | NUR ---
Problems reprioritized. Patient report given, questions answered & plan of care reviewed with Sharyn RN. No signs of distress. Pt was introduced to oncoming nurse. call ligth and personal belongings within reach. IV intact.
--- NOTE | 2018-06-09 07:06 | NUR ---
Patient in room [facility]. I have received report from Mar HANNA and had the opportunity to ask questions and assume patient care.
[2018-06-09 07:16] VITALS: BP 102/50
[2018-06-09] MEDS: K and/or MAG REPLACEMENT MC SCH (08:00)
[2018-06-09] MEDS: docusate sod 100mg capsule PO SCH ×2 (08:18→19:41)
[2018-06-09] MEDS: furosemide 20 MG/2 ML vial IV SCH ×2 (08:18→19:40)
[2018-06-09] MEDS: potassium Cl 20 mEq SR tablet PO SCH ×2 (08:19→16:37)
[2018-06-09] MEDS: heparin, porcine 5000 units/ml vial SQ SCH ×2 (08:19→19:41)
[2018-06-09] MEDS: clopidogrel 75mg tablet PO SCH (08:19)
[2018-06-09] MEDS: carVEDilol 12.5mg tablet PO SCH ×2 (08:19→19:40)
[2018-06-09] MEDS: allopurinol 100mg tablet PO SCH (08:20)
[2018-06-09] MEDS: pantoprazole 40mg Tablet.DR PO SCH (08:20)
[2018-06-09] MEDS: aspirin 325mg tablet PO SCH (08:20)
[2018-06-09] MEDS: loratadine 10mg tablet PO SCH (08:20)
[2018-06-09] MEDS: linezolid 600mg/300ml PREMIX 300 ML IV SCH (10:07)
[2018-06-09 11:36] VITALS: BP 128/70
[2018-06-09] MEDS: ondansetron/PF 4mg/2ml inj IV PRN ×2 (13:18→20:24)
[2018-06-09] MEDS: HYDROcodone/acetaminophen 10/325mg tab PO PRN ×2 (14:14→21:00)
--- NOTE | 2018-06-09 16:01 | NUR ---
Zyvox ed: Pt receiving Zyvox seen at bedside given written and verbal low tyramine nutrition therapy education with RD contact information. Will remain available. Addendum: 06/09/18 at [address] Amended: Links added.
--- NOTE | 2018-06-09 18:10 | NUR ---
Patient in room [facility]. I have received report from Sharyn HANNA and had the opportunity to ask questions and assume patient care.
--- NOTE | 2018-06-09 18:13 | NUR ---
Problems reprioritized. Patient report given, questions answered & plan of care reviewed with Mar HANNA.
[2018-06-09 19:38] VITALS: BP 126/68
[2018-06-09] MEDS: linezolid 600mg tablet PO SCH (19:48)
[2018-06-09 20:00] VITALS: BP 120/57
[2018-06-09] MEDS: atorvastatin 10mg tablet PO SCH (20:24)
[2018-06-09] MEDS: insulin glargine (Lantus) pen - multi-dose SQ SCH (21:00)
[2018-06-10] VITALS: BP 116/52
[2018-06-10] MEDS: HYDROcodone/acetaminophen 10/325mg tab PO PRN ×3 (01:10→11:33)
--- NOTE | 2018-06-10 06:00 | NUR ---
Problems reprioritized. Patient report given, questions answered & plan of care reviewed with Sharyn HANNA.
--- NOTE | 2018-06-10 06:20 | NUR ---
I have received report from Mar HANNA and had the opportunity to ask questions and assume patient care.
[2018-06-10 06:48] LABS: ALBUMIN 3.1 G/DL (3.4-5.0); ANION GAP 12 (8-16); BLOOD UREA NITROGEN 20 MG/DL (7-18); CALCIUM 9.2 MG/DL (8.5-10.1); CHLORIDE 105 MMOL/L (99-107); CREATININE 1.81 MG/DL (0.60-1.10); GLUCOSE 120 MG/DL (70-104); POTASSIUM 3.4 MMOL/L (3.5-5.1); SODIUM 141 MMOL/L (135-145); eGFR 36 ML/MIN
[2018-06-10 07:09] LABS: BASOPHILS % (AUTO) 0.9 % (0-1); EOSINOPHILS # (AUTO) 0.6 X10'3 (0-0.9); EOSINOPHILS % (AUTO) 12.2 % (0-6); HEMATOCRIT 29.5 % (42.0-52.0); HEMOGLOBIN 9.8 g/dl (14.0-17.9); LYMPHOCYTES # (AUTO) 1.3 X10'3 (1.1-4.8); LYMPHOCYTES % (AUTO) 27.9 % (21-51); MEAN CORPUSCULAR HEMOGLOBIN 30.7 PG (27.0-31.0); MEAN CORPUSCULAR HGB CONC 33.2 % (33.0-36.5); MEAN CORPUSCULAR VOLUME 92.6 FL (78-98); MEAN PLATELET VOLUME 7.2 FL (7.4-10.4); MONOCYTES # (AUTO) 0.3 X10'3 (0-0.9); MONOCYTES % (AUTO) 7.2 % (2-12); NEUTROPHILS # (AUTO) 2.6 X10'3 (1.8-7.7); NEUTROPHILS % (AUTO) 51.8 % (42-75); PLATELET COUNT 352 X10'3 (140-440); RED BLOOD COUNT 3.18 X10'6 (4.70-6.10); RED CELL DISTRIBUTION WIDTH 14.3 % (11.5-14.5); WHITE BLOOD COUNT 4.8 X10'3 (4.5-11.0)
[2018-06-10 07:38] VITALS: BP 136/79
[2018-06-10] MEDS: K and/or MAG REPLACEMENT MC SCH (07:39)
[2018-06-10] MEDS: piperacillin/tazo 3.375gm/50ml 50 ML IV SCH (07:46)
[2018-06-10] MEDS: potassium Cl 20 mEq SR tablet PO SCH (07:46)
[2018-06-10] MEDS: loratadine 10mg tablet PO SCH (07:46)
[2018-06-10] MEDS: clopidogrel 75mg tablet PO SCH (07:46)
[2018-06-10] MEDS: carVEDilol 12.5mg tablet PO SCH (07:46)
[2018-06-10] MEDS: pantoprazole 40mg Tablet.DR PO SCH (07:46)
[2018-06-10] MEDS: aspirin 325mg tablet PO SCH (07:47)
[2018-06-10] MEDS: heparin, porcine 5000 units/ml vial SQ SCH (07:47)
[2018-06-10] MEDS: allopurinol 100mg tablet PO SCH (07:47)
[2018-06-10] MEDS: furosemide 20 MG/2 ML vial IV SCH (07:47)
[2018-06-10] MEDS: docusate sod 100mg capsule PO SCH (07:48)
[2018-06-10] MEDS: ondansetron/PF 4mg/2ml inj IV PRN (07:51)
--- NOTE | 2018-06-10 08:06 | NUR ---
requested zyvox po from pharmacy
[2018-06-10] MEDS: linezolid 600mg tablet PO SCH ×2 (08:49→14:23)
[2018-06-10] MEDS ORDERED: MUPI1OIN5 TOP (10:50)
[2018-06-10] MEDS ORDERED: LINE600T32 PO (10:50)
--- NOTE | 2018-06-10 14:34 | NUR ---
Patient discharged with all belongings, educations and wound supplies to get by until MD appt this week. A&Ox4, VSS.
== END 2018-06-10 14:39 | disposition home health service (06) | DRG 638 ==
LOC: ER 11:05 → ED HOLD 13:59 → SUR 3N 20:00
PROVIDERS: ADMIT Internal Medicine; ATTEND Family Medicine
DX: E11.69 Type 2 diabetes mellitus with other specified complication (principal); L02.612 Cutaneous abscess of left foot; I13.0 Hypertensive heart and chronic kidney disease with heart failure and stage 1 through stage 4 chronic kidney disease, or unspecified chronic kidney disease; M86.8X7 Other osteomyelitis, ankle and foot; G47.30 Sleep apnea, unspecified; E78.00 Pure hypercholesterolemia, unspecified; I25.10 Atherosclerotic heart disease of native coronary artery without angina pectoris; I50.9 Heart failure, unspecified; I48.2 Chronic atrial fibrillation; J44.9 Chronic obstructive pulmonary disease, unspecified; E11.65 Type 2 diabetes mellitus with hyperglycemia; L03.032 Cellulitis of left toe; L97.529 Non-pressure chronic ulcer of other part of left foot with unspecified severity; G89.29 Other chronic pain; K64.9 Unspecified hemorrhoids; M10.9 Gout, unspecified; N18.3 Chronic kidney disease, stage 3 (moderate); E11.621 Type 2 diabetes mellitus with foot ulcer; E11.22 Type 2 diabetes mellitus with diabetic chronic kidney disease; Z82.3 Family history of stroke; Z82.49 Family history of ischemic heart disease and other diseases of the circulatory system; Z95.1 Presence of aortocoronary bypass graft; Z88.2 Allergy status to sulfonamides; Z88.5 Allergy status to narcotic agent; Z79.899 Other long term (current) drug therapy; Z90.49 Acquired absence of other specified parts of digestive tract; Z89.412 Acquired absence of left great toe
CPT/HCPCS: 36415; 73630; 73700; 80048; 82948; 83605; 83735; 84145; 85025; 85651; 87040; 87070; 96365; 99285; G0378; J1644; J1815; J1940; J2020; J2270; J2405; J2543; J3370; J3480; J7030

== ENCOUNTER 2018-06-27 11:56 | Outpatient (CLI) | payer MEDICARE, BC, OTHER ==
[~2018-06-27] VITALS: Ht 177.8 cm; Wt 112.9 kg
[~2018-06-27 11:56] MED LIST changes: -CLIN150C2 PO; -FERR325T28 PO; -FURO-150 PO; -GLIP5TAB13 PO; +LINE600T32 PO; -LORA10TA65 PO; +MUPI1OIN5 TOP; -POTA20TA19 PO; -TERB30CR22 TP
[2018-06-27] MEDS ORDERED: albuterol 2.5 MG/3 ML nebule NEB ONE (13:19)
== END 2018-06-27 23:59 | disposition home or self-care (01) ==
LOC: RT 11:56
PROVIDERS: ATTEND Internal Medicine Pulmonary Disease
DX: J44.9 Chronic obstructive pulmonary disease, unspecified (principal); D64.9 Anemia, unspecified; I11.0 Hypertensive heart disease with heart failure; I50.9 Heart failure, unspecified; Z95.0 Presence of cardiac pacemaker; E11.9 Type 2 diabetes mellitus without complications; Z79.82 Long term (current) use of aspirin; Z87.891 Personal history of nicotine dependence; Z72.89 Other problems related to lifestyle
CPT/HCPCS: 94060; 94727; 94729; 94760

== ENCOUNTER 2018-11-13 08:21 | Emergency (ER) | payer MEDICARE, BC, OTHER ==
[~2018-11-13] VITALS: Ht 177.8 cm; Wt 90.0 kg
[~2018-11-13 08:21] MED LIST changes: -CYA500T PO; +CYAN500T63 PO; +CYCL-1 PO; +LIDO700A32 TOP
[2018-11-13] MEDS ORDERED: normal saline 1000ML IV soln IVB ONE (08:30)
[2018-11-13 09:21] LABS: BASOPHILS # (AUTO) 0.1 X10'3 (0-0.2); BASOPHILS % (AUTO) 1.2 % (0-1); EOSINOPHILS # (AUTO) 0.4 X10'3 (0-0.9); HEMATOCRIT 37.3 % (42.0-52.0); HEMOGLOBIN 12.7 g/dl (14.0-17.9); LYMPHOCYTES # (AUTO) 1.6 X10'3 (1.1-4.8); LYMPHOCYTES % (AUTO) 23.3 % (21-51); MEAN CORPUSCULAR HEMOGLOBIN 31.9 PG (27.0-31.0); MEAN CORPUSCULAR VOLUME 93.9 FL (78-98); MEAN PLATELET VOLUME 7.2 FL (7.4-10.4); MONOCYTES # (AUTO) 0.5 X10'3 (0-0.9); MONOCYTES % (AUTO) 6.9 % (2-12); NEUTROPHILS # (AUTO) 4.2 X10'3 (1.8-7.7); NEUTROPHILS % (AUTO) 62.6 % (42-75); PLATELET COUNT 231 X10'3 (140-440); RED BLOOD COUNT 3.98 X10'6 (4.70-6.10); RED CELL DISTRIBUTION WIDTH 14.1 % (11.5-14.5); WHITE BLOOD COUNT 6.7 X10'3 (4.5-11.0)
[2018-11-13 09:27] VITALS: BP 107/54
[2018-11-13 09:43] LABS: ALANINE AMINOTRANSFERASE 24 U/L (12-78); ALBUMIN 3.7 G/DL (3.4-5.0); ALBUMIN/GLOBULIN RATIO 0.9 (1.1-1.5); ALKALINE PHOSPHATASE 64 IU/L (46-116); ANION GAP 7 (8-16); ASPARTATE AMINO TRANSFERASE 18 U/L (10-37); BILIRUBIN,TOTAL 0.5 MG/DL (0.1-1.0); BLOOD UREA NITROGEN 43 MG/DL (7-18); BUN/CREATININE RATIO 21.2 (5.4-32.0); CHLORIDE 106 MMOL/L (99-107); CREATININE 2.03 MG/DL (0.60-1.10); GLUCOSE 152 MG/DL (70-104); POTASSIUM 4.3 MMOL/L (3.5-5.1); SODIUM 138 MMOL/L (135-145); TOTAL CARBON DIOXIDE 24.7 MMOL/L (24-32); TOTAL PROTEIN 7.9 G/DL (6.4-8.2); eGFR 32 ML/MIN
[2018-11-13 09:46] LABS: TROPONIN I < 0.04 NG/ML (0.0-0.05)
[2018-11-13 09:48] LABS: CLARITY,URINE CLEAR (Clear); COLOR,URINE YELLOW (Yellow); GLUCOSE, URINE NEGATIVE (Neg); KETONES,URINE NEGATIVE (Neg); LEUKOCYTE ESTERASE ,URINE NEGATIVE (Neg); NITRITES, URINE NEGATIVE (Neg); OCCULT BLOOD,URINE NEGATIVE (Neg); PROTEIN,URINE NEGATIVE (Neg); UA COLLECTION TYPE URINAL; UROBILINOGEN,URINE 0.2 E.U/dL (0.2-1.0)
== END 2018-11-13 11:21 | disposition home or self-care (01) ==
LOC: ER 08:22
DX: F07.81 Postconcussional syndrome (principal); R07.89 Other chest pain; R05 Cough; I48.91 Unspecified atrial fibrillation; I25.10 Atherosclerotic heart disease of native coronary artery without angina pectoris; I11.0 Hypertensive heart disease with heart failure; I50.9 Heart failure, unspecified; E78.00 Pure hypercholesterolemia, unspecified; J44.9 Chronic obstructive pulmonary disease, unspecified; G47.30 Sleep apnea, unspecified; E11.9 Type 2 diabetes mellitus without complications; G89.29 Other chronic pain; M10.9 Gout, unspecified; Z90.49 Acquired absence of other specified parts of digestive tract; Z88.2 Allergy status to sulfonamides; Z88.6 Allergy status to analgesic agent; Z79.899 Other long term (current) drug therapy; Z98.890 Other specified postprocedural states; Z95.0 Presence of cardiac pacemaker
CPT/HCPCS: 36415; 70450; 71045; 80053; 81003; 82948; 84484; 85025; 85610; 93005; 99284; J7030

== ENCOUNTER 2019-09-06 14:25 | Emergency (ER) | payer BC, MEDICARE, OTHER ==
[~2019-09-06] VITALS: Ht 177.8 cm; Wt 120.5 kg
[~2019-09-06 14:25] MED LIST changes: +LINE600T14 PO; -LINE600T32 PO; +SIMV-42 PO; -SIMV20TA5 PO
[2019-09-06] MEDS ORDERED: tranexamic acid 100mg/ml inj. TP ONE (15:00)
[2019-09-06] MEDS ORDERED: AMOX-117 PO (15:49)
[2019-09-06 16:04] VITALS: BP 125/64
== END 2019-09-06 16:08 | disposition home or self-care (01) ==
LOC: ER 14:26
DX: R04.0 Epistaxis (principal); I48.91 Unspecified atrial fibrillation; I25.10 Atherosclerotic heart disease of native coronary artery without angina pectoris; I50.9 Heart failure, unspecified; E78.00 Pure hypercholesterolemia, unspecified; I11.0 Hypertensive heart disease with heart failure; J44.9 Chronic obstructive pulmonary disease, unspecified; G47.30 Sleep apnea, unspecified; E11.9 Type 2 diabetes mellitus without complications; G89.29 Other chronic pain; Z98.61 Coronary angioplasty status; Z90.49 Acquired absence of other specified parts of digestive tract; Z95.0 Presence of cardiac pacemaker; Z98.890 Other specified postprocedural states; Z88.2 Allergy status to sulfonamides; Z79.82 Long term (current) use of aspirin; Z79.899 Other long term (current) drug therapy
CPT/HCPCS: 30901; 99284

== ENCOUNTER 2021-07-28 06:54 | Emergency (ER) | payer OTHER, MEDICARE, BC ==
[~2021-07-28] VITALS: Ht 177.8 cm; Wt 106.8 kg
[~2021-07-28 06:54] MED LIST changes: +ALBU8.5H17 INH; -ALLO100T PO; +ALLO100T25 PO; -ASPI-1264 PO; +ASPI-611 PO; -CARV25TA PO; +CARV25TA2 PO; +CLOP75TA34 PO; -CLOP75TA35 PO; +CYAN-51 PO; -CYAN500T63 PO; -CYCL-1 PO; +DICL100G60 TOP; -ERGO500014 PO; +ERGO50002 PO; -FISH12002 PO; +FURO40TA4 PO; +HYDR-3964 PO; -HYDR-3965 PO; -LIDO700A32 TOP; -LINE600T14 PO; +MULT-1085 PO; -MULT1TAB PO; -MUPI1OIN5 TOP; +NITR0.4T48 SL; -NITR0.4T51 SL; +OMEG1CAP13 PO; +OMEP20CA16 PO; -PANT-47 PO; +POTA-82 PO; -SIMV-42 PO; +SIMV10TA98 PO
[2021-07-28] MEDS ORDERED: morphine 4 MG/ML inj SYRINge IV PRN (07:05)
[2021-07-28] MEDS ORDERED: ondansetron/PF 4mg/2ml inj IV ONE (07:05)
[2021-07-28 07:27] LABS: CLARITY,URINE CLEAR (Clear); COLOR,URINE YELLOW (Yellow); GLUCOSE, URINE NEGATIVE (Neg); KETONES,URINE NEGATIVE (Neg); LEUKOCYTE ESTERASE ,URINE NEGATIVE (Neg); NITRITES, URINE NEGATIVE (Neg); OCCULT BLOOD,URINE NEGATIVE (Neg); PROTEIN,URINE NEGATIVE (Neg); UROBILINOGEN,URINE 0.2 E.U/dL (0.2-1.0)
[2021-07-28 07:29] LABS: UA COLLECTION TYPE URINAL
[2021-07-28 07:47] LABS: BASOPHILS # (AUTO) 0.1 X10'3 (0-0.2); EOSINOPHILS # (AUTO) 0.5 X10'3 (0-0.9); EOSINOPHILS % (AUTO) 5.6 % (0-6); HEMATOCRIT 35.4 % (42.0-52.0); HEMOGLOBIN 11.8 g/dl (14.0-17.9); LYMPHOCYTES # (AUTO) 1.7 X10'3 (1.1-4.8); LYMPHOCYTES % (AUTO) 20.4 % (21-51); MEAN CORPUSCULAR HEMOGLOBIN 30.1 PG (27.0-31.0); MEAN CORPUSCULAR HGB CONC 33.2 g/dL (33.0-36.5); MEAN CORPUSCULAR VOLUME 90.6 FL (78-98); MONOCYTES # (AUTO) 0.7 X10'3 (0-0.9); MONOCYTES % (AUTO) 8.4 % (2-12); NEUTROPHILS # (AUTO) 5.4 X10'3 (1.8-7.7); NEUTROPHILS % (AUTO) 64.6 % (42-75); PLATELET COUNT 353 X10'3 (140-440); RED BLOOD COUNT 3.91 X10'6 (4.70-6.10); RED CELL DISTRIBUTION WIDTH 15.9 % (11.5-14.5); WHITE BLOOD COUNT 8.4 X10'3 (4.5-11.0)
[2021-07-28 08:17] LABS: ALANINE AMINOTRANSFERASE 6 U/L (12-78); ALBUMIN 3.6 G/DL (3.4-5.0); ALBUMIN/GLOBULIN RATIO 0.8 (1.1-1.5); ALKALINE PHOSPHATASE 81 IU/L (46-116); ANION GAP 11 (8-16); ASPARTATE AMINO TRANSFERASE 20 U/L (10-37); BILIRUBIN,TOTAL 0.5 MG/DL (0.1-1.0); BLOOD UREA NITROGEN 31 MG/DL (7-18); CALCIUM 9.5 MG/DL (8.5-10.1); CHLORIDE 103 MMOL/L (99-107); CREATININE 1.72 MG/DL (0.60-1.10); GLUCOSE 136 MG/DL (70-104); LIPASE 192 U/L (73-393); SODIUM 140 MMOL/L (135-145); TOTAL CARBON DIOXIDE 25.6 MMOL/L (24-32); TOTAL PROTEIN 8.1 G/DL (6.4-8.2); eGFR 38 ML/MIN
[2021-07-28 08:21] LABS: POTASSIUM 4.4 MMOL/L (3.5-5.1)
[2021-07-28] MEDS ORDERED: HYDROcodone/acetaminophen 10/325mg tab PO ONE (08:50)
[2021-07-28] MEDS ORDERED: HYDR-3964 PO (09:14)
[2021-07-28 09:16] VITALS: BP 87/52
== END 2021-07-28 09:29 | disposition home or self-care (01) ==
LOC: ER 06:55
DX: S29.9XXA Unspecified injury of thorax, initial encounter (principal); S39.012A Strain of muscle, fascia and tendon of lower back, initial encounter; M54.89 Other dorsalgia; R10.84 Generalized abdominal pain; R11.0 Nausea; I48.91 Unspecified atrial fibrillation; I25.10 Atherosclerotic heart disease of native coronary artery without angina pectoris; I11.0 Hypertensive heart disease with heart failure; I50.9 Heart failure, unspecified; E78.00 Pure hypercholesterolemia, unspecified; J44.9 Chronic obstructive pulmonary disease, unspecified; E11.9 Type 2 diabetes mellitus without complications; G89.29 Other chronic pain; M10.9 Gout, unspecified; Z90.49 Acquired absence of other specified parts of digestive tract; Z98.890 Other specified postprocedural states; Z95.0 Presence of cardiac pacemaker; Z88.2 Allergy status to sulfonamides; Z79.82 Long term (current) use of aspirin; Z79.899 Other long term (current) drug therapy; W19.XXXA Unspecified fall, initial encounter; Y93.89 Activity, other specified; Y92.89 Other specified places as the place of occurrence of the external cause; Y99.8 Other external cause status
CPT/HCPCS: 36415; 71045; 74176; 80053; 81003; 83690; 85025; 96374; 96375; 99285; J2270; J2405

== ENCOUNTER 2022-04-27 00:10 | Outpatient (CLI) | payer OTHER ==
[~2022-04-27 00:10] MED LIST changes: -ALBU8.5H17 INH; -ASPI-611 PO; -DICL100G60 TOP; +FERR325T28 PO; -HYDR-3964 PO; +MAGN64TA10 PO; -NITR0.4T48 SL; +OMEG-5 PO; -OMEG1CAP13 PO; +SEMA1PEN3 SQ; +TIOT4MIS3 IH
== END 2022-04-27 23:59 | disposition home or self-care (01) ==
LOC: RT 00:10
PROVIDERS: ATTEND Internal Medicine
DX: J44.9 Chronic obstructive pulmonary disease, unspecified (principal); J84.9 Interstitial pulmonary disease, unspecified; E66.9 Obesity, unspecified; R06.09 Other forms of dyspnea; Z87.891 Personal history of nicotine dependence; Z79.899 Other long term (current) drug therapy
CPT/HCPCS: 94618

== ENCOUNTER 2022-07-07 05:39 | Day surgery (SDC) | payer MEDICARE, BC ==
[2022-07-06 10:18] LABS: BASOPHILS # (AUTO) 0.1 X10'3 (0-0.2); BASOPHILS % (AUTO) 0.8 % (0-1); EOSINOPHILS # (AUTO) 0.5 X10'3 (0-0.9); EOSINOPHILS % (AUTO) 5.4 % (0-6); HEMATOCRIT 33.2 % (42.0-52.0); HEMOGLOBIN 11.1 g/dl (14.0-17.9); LYMPHOCYTES # (AUTO) 1.5 X10'3 (1.1-4.8); LYMPHOCYTES % (AUTO) 16.6 % (21-51); MEAN CORPUSCULAR HEMOGLOBIN 31.5 PG (27.0-31.0); MEAN CORPUSCULAR HGB CONC 33.5 g/dL (33.0-36.5); MEAN CORPUSCULAR VOLUME 94.1 FL (78-98); MEAN PLATELET VOLUME 6.7 FL (7.4-10.4); MONOCYTES # (AUTO) 0.7 X10'3 (0-0.9); MONOCYTES % (AUTO) 7.4 % (2-12); NEUTROPHILS # (AUTO) 6.3 X10'3 (1.8-7.7); NEUTROPHILS % (AUTO) 69.8 % (42-75); PLATELET COUNT 316 X10'3 (140-440); RED BLOOD COUNT 3.53 X10'6 (4.70-6.10); RED CELL DISTRIBUTION WIDTH 15.1 % (11.5-14.5); WHITE BLOOD COUNT 9.1 X10'3 (4.5-11.0)
[2022-07-06 10:27] LABS: ALBUMIN 3.6 G/DL (3.4-5.0); ANION GAP 12 (8-16); BLOOD UREA NITROGEN 35 MG/DL (7-18); BUN/CREATININE RATIO 17.8 (5.4-32.0); CALCIUM 9.6 MG/DL (8.5-10.1); CHLORIDE 103 MMOL/L (99-107); CREATININE 1.97 MG/DL (0.60-1.10); GLUCOSE 122 MG/DL (70-104); POTASSIUM 3.9 MMOL/L (3.5-5.1); SODIUM 142 MMOL/L (135-145); TOTAL CARBON DIOXIDE 27.3 MMOL/L (24-32); eGFR 33 ML/MIN
[~2022-07-07] VITALS: Ht 177.8 cm; Wt 107.9 kg
[2022-07-07] VITALS (9 sets, daily range): BP systolic 112–135; BP diastolic 48–60
[2022-07-07] MEDS ORDERED: diphenhydrAMINE 25mg capsule PO PRN (06:45)
[2022-07-07] MEDS ORDERED: LORazepam 0.5 MG tablet PO PRN (06:45)
[2022-07-07] MEDS ORDERED: normal saline 1,000 ML IV SCH (06:45)
[2022-07-07] MEDS ORDERED: acetylcysteine 200 MG/ml 4ml vial PO ONE (07:05)
[2022-07-07] MEDS ORDERED: SODIUM BICARBONATE 150MEQ IN D5W 1,000 ML IV ONE (07:05)
[2022-07-07] MEDS ORDERED: nitroGLYCERIN-Tridil 50MG/D5W 250 ML IV ONE (07:06)
[2022-07-07] MEDS ORDERED: verapamil 2.5 mg/ml inj IV ONE (07:06)
[2022-07-07] MEDS ORDERED: midazolam 1 mg/ML 2ml injection ONE (07:06)
[2022-07-07] MEDS ORDERED: fentaNYL/PF 50MCG/1 ML 2ML syringe ONE (07:06)
[2022-07-07] MEDS ORDERED: LIDOcaine 1% (10mg/ml) 2ml vial ONE (07:07)
[2022-07-07] MEDS ORDERED: iohexol 350 MG/ML 50ML vial IV ONE (07:07)
[2022-07-07] MEDS ORDERED: iohexol 350MG/ML 100ml bottle IV ONE (07:07)
[2022-07-07] MEDS ORDERED: heparin 1,000unit/ml 10ml vial 10 ML ONE (07:07)
[2022-07-07] MEDS ORDERED: CHOL500050 PO (07:09)
[2022-07-07] MEDS ORDERED: ISOS30TA84 PO (07:10)
[2022-07-07] MEDS ORDERED: acetylcysteine 200 MG/ml 4ml vial PO SCH (08:00)
[2022-07-07] MEDS ORDERED: LIDOcaine 1% 30ml preserv. free vial ONE (08:44)
--- NOTE | 2022-07-07 13:57 | NUR ---
report given to Deirdre RN
== END 2022-07-07 15:05 | disposition home or self-care (01) ==
LOC: SSTAY O 05:39
PROVIDERS: ATTEND Internal Medicine Cardiovascular Disease
DX: R94.39 Abnormal result of other cardiovascular function study (principal); I25.10 Atherosclerotic heart disease of native coronary artery without angina pectoris; E11.22 Type 2 diabetes mellitus with diabetic chronic kidney disease; I13.0 Hypertensive heart and chronic kidney disease with heart failure and stage 1 through stage 4 chronic kidney disease, or unspecified chronic kidney disease; I50.40 Unspecified combined systolic (congestive) and diastolic (congestive) heart failure; N18.9 Chronic kidney disease, unspecified; I48.0 Paroxysmal atrial fibrillation; M19.90 Unspecified osteoarthritis, unspecified site; I08.3 Combined rheumatic disorders of mitral, aortic and tricuspid valves; I27.29 Other secondary pulmonary hypertension; E78.49 Other hyperlipidemia; E66.9 Obesity, unspecified; Z68.33 Body mass index [BMI] 33.0-33.9, adult; Z95.2 Presence of prosthetic heart valve; Z79.01 Long term (current) use of anticoagulants; Z79.899 Other long term (current) drug therapy; Z85.51 Personal history of malignant neoplasm of bladder; Z95.0 Presence of cardiac pacemaker; Z95.5 Presence of coronary angioplasty implant and graft; Z90.49 Acquired absence of other specified parts of digestive tract; Z98.890 Other specified postprocedural states
CPT/HCPCS: 36415; 76937; 80048; 82948; 85025; 93005; 93458; 99152; 99153; C1760; C1769; C1894; J1644; J2250; J3010; J3490; J7030; Q0163; Q9967; A4615; A6258; A6402; C1725

== ENCOUNTER 2023-03-31 09:20 | Outpatient (CLI) | payer MEDICARE, BC ==
[~2023-03-31] VITALS: Ht 174 cm; Wt 104.3 kg
[~2023-03-31 09:20] MED LIST changes: +ALBU18HF2 INH; -CYAN-51 PO; -ERGO50002 PO; +ERGO500056 PO; +FAMO20TA79 PO; -FERR325T28 PO; -FURO40TA4 PO; +ISOS30TA84 PO; +LEVO250T74 PO; -MAGN64TA10 PO; -OMEG-5 PO; -OMEP20CA16 PO; -POTA-82 PO; -TIOT4MIS3 IH; +TIOT4MIS3 PO
[2023-03-31 09:56] LABS: BASOPHILS # (AUTO) 0.1 X10'3 (0-0.2); BASOPHILS % (AUTO) 1.2 % (0-1); EOSINOPHILS # (AUTO) 0.3 X10'3 (0-0.9); HEMATOCRIT 33.7 % (42.0-52.0); HEMOGLOBIN 11.2 g/dl (14.0-17.9); LYMPHOCYTES # (AUTO) 1.2 X10'3 (1.1-4.8); LYMPHOCYTES % (AUTO) 23.6 % (21-51); MEAN CORPUSCULAR HEMOGLOBIN 30.8 PG (27.0-31.0); MEAN CORPUSCULAR HGB CONC 33.1 g/dL (33.0-36.5); MONOCYTES # (AUTO) 0.4 X10'3 (0-0.9); MONOCYTES % (AUTO) 7.6 % (2-12); NEUTROPHILS # (AUTO) 3.2 X10'3 (1.8-7.7); NEUTROPHILS % (AUTO) 61.6 % (42-75); PLATELET COUNT 206 X10'3 (140-440); RED BLOOD COUNT 3.62 X10'6 (4.70-6.10); RED CELL DISTRIBUTION WIDTH 15.5 % (11.5-14.5); WHITE BLOOD COUNT 5.1 X10'3 (4.5-11.0)
[2023-03-31 10:05] LABS: APTT 28 SECONDS (22-32); PROTHROMBIN TIME 10.8 SECONDS (9.0-12.0)
[2023-03-31 10:08] LABS: ALANINE AMINOTRANSFERASE 13 U/L (12-78); ALBUMIN 3.5 G/DL (3.4-5.0); ALKALINE PHOSPHATASE 91 IU/L (46-116); ANION GAP 6 (8-16); ASPARTATE AMINO TRANSFERASE 14 U/L (10-37); BILIRUBIN,TOTAL 0.4 MG/DL (0.1-1.0); BLOOD UREA NITROGEN 29 MG/DL (7-18); BUN/CREATININE RATIO 17.4 (10.0-20.0); CALCIUM 9.4 MG/DL (8.5-10.1); CHLORIDE 106 MMOL/L (99-107); CREATININE 1.67 MG/DL (0.60-1.10); GLUCOSE 98 MG/DL (70-104); POTASSIUM 3.9 MMOL/L (3.5-5.1); SODIUM 140 MMOL/L (135-145); TOTAL CARBON DIOXIDE 28.2 MMOL/L (24-32); TOTAL PROTEIN 7.1 G/DL (6.4-8.2); eGFR 39 ML/MIN
[2023-03-31 10:15] LABS: PRO BRAIN NATRIURETIC PEPTIDE 2664 PG/ML (0-450)
[2023-03-31] MEDS ORDERED: IODIXANOL 320 MG/ML INFUS..BTL 100ML IV ONE (10:36)
[2023-03-31 13:13] LABS: ABG BASE EXCESS -0.9 mmol/L (-2.0-2.0); ABG HCO3 23.3 mmol/L (22.0-26.0); ABG OXYGEN SATURATION 95.9 % (94-97); ABG PCO2 (T) 37.4 mmHg (35.0-48.0); ABG PH (T) 7.413 (7.340-7.440); ABG PO2 (T) 77.8 mmHg (75.0-100.0); ALLEN'S TEST POSITIVE; FCOHb 0.6 % (0.0-3.9); FHHb 4.1 % (0.0-5.0); FMetHb 0.3 % (0.0-1.5); MODE ROOM AIR; TOTAL HEMOGLOBIN 12.2 G/dl (14.0-17.9)
[2023-03-31] MEDS ORDERED: albuterol 2.5 MG/3 ML nebule NEB ONE (13:50)
[2023-03-31 13:55] VITALS: PULSE 75; RESP 14; O2SAT 96
== END 2023-03-31 23:59 | disposition home or self-care (01) ==
LOC: RAD 09:20
PROVIDERS: ATTEND Internal Medicine Cardiovascular Disease
DX: T82.03XA Leakage of heart valve prosthesis, initial encounter (principal); I35.1 Nonrheumatic aortic (valve) insufficiency; R06.02 Shortness of breath; I51.7 Cardiomegaly; J43.2 Centrilobular emphysema; M47.814 Spondylosis without myelopathy or radiculopathy, thoracic region; R59.0 Localized enlarged lymph nodes; I65.23 Occlusion and stenosis of bilateral carotid arteries; Z90.49 Acquired absence of other specified parts of digestive tract; Z95.2 Presence of prosthetic heart valve; Y83.8 Other surgical procedures as the cause of abnormal reaction of the patient, or of later complication, without mention of misadventure at the time of the procedure; Y82.8 Other medical devices associated with adverse incidents
CPT/HCPCS: 36415; 36600; 71046; 71275; 74174; 75572; 80053; 82803; 83880; 85018; 85025; 85610; 85730; 93880; 94060; 94727; 94729; 94760; J3490; Q9967; A6258

== ENCOUNTER 2023-06-12 13:50 | Outpatient (CLI) | payer MEDICARE, BC ==
[2023-06-12 15:01] LABS: BILIRUBIN,URINE NEGATIVE (Neg); CLARITY,URINE CLEAR (Clear); COLOR,URINE YELLOW (Yellow); GLUCOSE, URINE NEGATIVE (Neg); KETONES,URINE NEGATIVE (Neg); LEUKOCYTE ESTERASE ,URINE NEGATIVE (Neg); NITRITES, URINE NEGATIVE (Neg); OCCULT BLOOD,URINE NEGATIVE (Neg); PH,URINE 6.5 (4.8-8.0); PROTEIN,URINE NEGATIVE (Neg); UROBILINOGEN,URINE 0.2 E.U/dL (0.2-1.0)
[2023-06-12 15:03] LABS: UA COLLECTION TYPE CLN CATCH MIDSTREAM
[2023-06-12 15:05] LABS: BASOPHILS # (AUTO) 0.1 X10'3 (0-0.2); BASOPHILS % (AUTO) 1.3 % (0-1); EOSINOPHILS # (AUTO) 0.6 X10'3 (0-0.9); LYMPHOCYTES # (AUTO) 2.1 X10'3 (1.1-4.8); LYMPHOCYTES % (AUTO) 29.4 % (21-51); MEAN CORPUSCULAR HEMOGLOBIN 31.5 PG (27.0-31.0); MEAN CORPUSCULAR HGB CONC 33.2 g/dL (33.0-36.5); MEAN CORPUSCULAR VOLUME 94.8 FL (78-98); MEAN PLATELET VOLUME 7.9 FL (7.4-10.4); MONOCYTES # (AUTO) 0.7 X10'3 (0-0.9); MONOCYTES % (AUTO) 9.4 % (2-12); NEUTROPHILS # (AUTO) 3.6 X10'3 (1.8-7.7); NEUTROPHILS % (AUTO) 51.9 % (42-75); PRE OP HEMATOCRIT 38.8 % (42.0-52.0); PRE OP HEMOGLOBIN 12.9 g/dL (14.0-17.9); PRE OP PLATELET COUNT 229 X10'3 (140-440); RED BLOOD COUNT 4.09 X10'6 (4.70-6.10)
[2023-06-12 15:15] LABS: PRE OP PROTIME 10.9 SECONDS (9.0-12.0)
[2023-06-12] MEDS ORDERED: MAGN400T39 PO (15:18)
[2023-06-12] MEDS ORDERED: FURO40TA4 PO (15:18)
[2023-06-12] MEDS ORDERED: ASPI81TA52 PO (15:18)
[2023-06-12] MEDS ORDERED: AZIT-164 PO (15:18)
[2023-06-12] MEDS ORDERED: OMEG100037 PO (15:18)
[2023-06-12] MEDS ORDERED: POTA-366 PO (15:18)
[2023-06-12] MEDS ORDERED: VITA-268 PO (15:18)
[2023-06-12] MEDS ORDERED: CETI10TA19 PO (15:18)
[2023-06-12] MEDS ORDERED: POTA-208 PO (15:18)
[2023-06-12 15:29] LABS: ALBUMIN/GLOBULIN RATIO 0.8 (1.1-1.5); ALKALINE PHOSPHATASE 109 IU/L (46-116); BLOOD UREA NITROGEN 52 MG/DL (7-18); BUN/CREATININE RATIO 22.2 (10.0-20.0); CALCIUM 10.3 MG/DL (8.5-10.1); CHLORIDE 102 MMOL/L (99-107); CREATININE 2.34 MG/DL (0.60-1.10); PRE OP ALT 20 U/L (30-65); PRE OP ANION GAP 9 (8-16); PRE OP AST 25 U/L (10-37); PRE OP BILIRUB, TOTAL 0.6 MG/DL (0.0-1.0); PRE OP GLUCOSE 118 MG/DL (70-104); PRE OP POTASSIUM 4.4 MMOL/L (3.4-5.1); PRE OP SODIUM 140 MMOL/L (135-145); PRO BRAIN NATRIURETIC PEPTIDE 3039 PG/ML (0-450); TOTAL CARBON DIOXIDE 29.4 MMOL/L (24-32); TOTAL PROTEIN 8.9 G/DL (6.4-8.2); eGFR 27 ML/MIN
[2023-06-12 15:35] LABS: HEMOGLOBIN A1C 5.5 % (4.5-6.2)
[2023-06-29] MEDS ORDERED: OMEP20CA16 PO (16:58)
[2023-07-05] MEDS ORDERED: CETI10TA14 PO (14:10)
[2023-07-05] MEDS ORDERED: ERGO50002 PO (16:10)
== END 2023-06-12 23:59 | disposition home or self-care (01) ==
LOC: PRE-OP 13:50 → EDSTATUS 06-15 11:15
PROVIDERS: ATTEND Internal Medicine Cardiovascular Disease
DX: Z01.818 Encounter for other preprocedural examination (principal); I35.1 Nonrheumatic aortic (valve) insufficiency; R06.02 Shortness of breath; I51.7 Cardiomegaly; R94.31 Abnormal electrocardiogram [ECG] [EKG]; T82.03XA Leakage of heart valve prosthesis, initial encounter; Z95.2 Presence of prosthetic heart valve; Y84.9 Medical procedure, unspecified as the cause of abnormal reaction of the patient, or of later complication, without mention of misadventure at the time of the procedure; Y92.89 Other specified places as the place of occurrence of the external cause
CPT/HCPCS: 36415; 71046; 80053; 81003; 83036; 83880; 85025; 85610; 85730; 86885; 86900; 86901; 86920; 87081; 93005

== ENCOUNTER 2023-11-10 16:27 | Emergency (ER) | payer OTHER, MEDICARE, BC ==
[~2023-11-10] VITALS: Ht 175.3 cm; Wt 106.8 kg
[~2023-11-10 16:27] MED LIST changes: +ASPI81TA52 PO; +AZIT-164 PO; +CETI10TA14 PO; +ERGO50002 PO; -ERGO500056 PO; -FAMO20TA79 PO; +FURO40TA4 PO; -ISOS30TA84 PO; -LEVO250T74 PO; +MAGN400T39 PO; +OMEG100037 PO; +OMEP20CA16 PO; +POTA-208 PO; +POTA-366 PO; +VITA-268 PO
[2023-11-10 18:51] VITALS: BP 125/62; PULSE 83; RESP 16; TEMP 97.9; O2SAT 96
== END 2023-11-10 18:52 | disposition home or self-care (01) ==
LOC: ER 16:28
DX: R25.2 Cramp and spasm (principal); I11.0 Hypertensive heart disease with heart failure; I50.9 Heart failure, unspecified; I25.10 Atherosclerotic heart disease of native coronary artery without angina pectoris; I48.91 Unspecified atrial fibrillation; E78.00 Pure hypercholesterolemia, unspecified; J44.9 Chronic obstructive pulmonary disease, unspecified; G47.30 Sleep apnea, unspecified; E11.9 Type 2 diabetes mellitus without complications; G89.29 Other chronic pain; M54.9 Dorsalgia, unspecified; M79.662 Pain in left lower leg; Z90.49 Acquired absence of other specified parts of digestive tract; Z95.0 Presence of cardiac pacemaker; Z98.890 Other specified postprocedural states; Z85.89 Personal history of malignant neoplasm of other organs and systems; Z88.2 Allergy status to sulfonamides; Z88.8 Allergy status to other drugs, medicaments and biological substances; Z79.82 Long term (current) use of aspirin; Z79.2 Long term (current) use of antibiotics; Z79.899 Other long term (current) drug therapy
CPT/HCPCS: 93970; 99284

== ENCOUNTER 2023-12-06 06:38 | Day surgery (SDC) | payer MEDICARE, BC ==
[2023-12-05 10:06] LABS: BASOPHILS # (AUTO) 0.1 X10'3 (0-0.2); BASOPHILS % (AUTO) 1.5 % (0-1); EOSINOPHILS # (AUTO) 0.4 X10'3 (0-0.9); HEMATOCRIT 36.9 % (42.0-52.0); HEMOGLOBIN 12.3 g/dl (14.0-17.9); LYMPHOCYTES # (AUTO) 1.7 X10'3 (1.1-4.8); LYMPHOCYTES % (AUTO) 27.3 % (21-51); MEAN CORPUSCULAR HEMOGLOBIN 31.8 PG (27.0-31.0); MEAN CORPUSCULAR HGB CONC 33.3 g/dL (33.0-36.5); MEAN CORPUSCULAR VOLUME 95.5 FL (78-98); MEAN PLATELET VOLUME 7.1 FL (7.4-10.4); MONOCYTES # (AUTO) 0.5 X10'3 (0-0.9); MONOCYTES % (AUTO) 7.9 % (2-12); NEUTROPHILS # (AUTO) 3.5 X10'3 (1.8-7.7); NEUTROPHILS % (AUTO) 56.3 % (42-75); PLATELET COUNT 209 X10'3 (140-440); RED BLOOD COUNT 3.86 X10'6 (4.70-6.10); RED CELL DISTRIBUTION WIDTH 15.6 % (11.5-14.5); WHITE BLOOD COUNT 6.2 X10'3 (4.5-11.0)
[2023-12-05 10:22] LABS: ALBUMIN 3.9 G/DL (3.4-5.0); ANION GAP 10 (8-16); BLOOD UREA NITROGEN 30 MG/DL (7-18); BUN/CREATININE RATIO 15.9 (10.0-20.0); CALCIUM 9.6 MG/DL (8.5-10.1); CHLORIDE 104 MMOL/L (99-107); CREATININE 1.89 MG/DL (0.60-1.10); GLUCOSE 127 MG/DL (70-104); POTASSIUM 3.9 MMOL/L (3.5-5.1); SODIUM 142 MMOL/L (135-145); TOTAL CARBON DIOXIDE 28.4 MMOL/L (24-32); eGFR 34 ML/MIN
[2023-12-05 10:26] LABS: APTT 29 SECONDS (22-32); PROTHROMBIN TIME 10.8 SECONDS (9.0-12.0)
[2023-12-06] VITALS (16 sets, daily range): BP systolic 92–129; BP diastolic 37–69; PULSE 75–80; RESP 16–20; TEMP 97.9; O2SAT 92–98
[~2023-12-06] VITALS: Ht 175.3 cm; Wt 106.4 kg
[2023-12-06] MEDS: LORazepam 0.5 MG tablet PO PRN (07:12)
[2023-12-06] MEDS: diphenhydrAMINE 25mg capsule PO PRN (07:12)
[2023-12-06] MEDS: normal saline 1,000 ML IV SCH (07:12)
[2023-12-06] MEDS: acetylcysteine 200 MG/ml 4ml vial PO PRN (07:13)
[2023-12-06] MEDS ORDERED: LIDOcaine 1% 30ml preserv. free vial ONE (07:24)
[2023-12-06] MEDS ORDERED: iohexol 350MG/ML 100ml bottle IV ONE (07:24)
[2023-12-06] MEDS ORDERED: fentaNYL/PF 50MCG/1 ML 2ML syringe ONE (07:24)
[2023-12-06] MEDS ORDERED: heparin 1,000unit/ml 10ml vial 10 ML ONE (07:24)
[2023-12-06] MEDS ORDERED: midazolam 1 mg/ML 2ml injection ONE (07:24)
[2023-12-06] MEDS ORDERED: nitroGLYCERIN 500mcg/5mL D5W 5 ML IV ONE (07:39)
[2023-12-06] MEDS ORDERED: FURO80TA3 PO (08:03)
[2023-12-06] MEDS ORDERED: CHOL500044 PO (08:03)
[2023-12-06] MEDS ORDERED: olodaterol INH (08:03)
[2023-12-06] MEDS ORDERED: SIMV-42 PO (08:03)
[2023-12-06] MEDS ORDERED: CYAN250010 PO (08:03)
[2023-12-06] MEDS ORDERED: FOLI1TAB2 PO (08:03)
[2023-12-06] MEDS ORDERED: iohexol 350 MG/ML 50ML vial IV ONE (08:33)
[2023-12-06] MEDS: sodium bicarbonate 1meq/ml syr 150 ML in dextrose 5%-water 1,000 ML IV ONE (10:00)
[2023-12-06 11:11] LABS: ISTAT HGB ART 11.6 g/dl (14.0-17.9); ISTAT Hct ART 34 %PCV (42-52); ISTAT O2 SATURATION ARTERIAL 98 % (95-98); ISTAT SOURCE BLNK
[2023-12-06 11:11] LABS: ISTAT HGB MIX 11.2 g/dl (14.0-17.9); ISTAT Hct MIX 33 %PCV (42-52); ISTAT O2 SATURATION MIX VENOUS 74 % (60-80); ISTAT SOURCE BLNK
[2023-12-06] MEDS ORDERED: HYDROcodone/acetaminophen 5mg/325mg tablet PO PRN (12:55)
[2023-12-06] MEDS: HYDROcodone/acetaminophen 10/325mg tab PO PRN (13:02)
== END 2023-12-06 16:50 | disposition home or self-care (01) ==
LOC: SSTAY O 06:38
PROVIDERS: ATTEND Internal Medicine Cardiovascular Disease
DX: R94.39 Abnormal result of other cardiovascular function study (principal); I25.10 Atherosclerotic heart disease of native coronary artery without angina pectoris; I13.0 Hypertensive heart and chronic kidney disease with heart failure and stage 1 through stage 4 chronic kidney disease, or unspecified chronic kidney disease; E11.22 Type 2 diabetes mellitus with diabetic chronic kidney disease; N18.9 Chronic kidney disease, unspecified; I50.40 Unspecified combined systolic (congestive) and diastolic (congestive) heart failure; E78.5 Hyperlipidemia, unspecified; I48.0 Paroxysmal atrial fibrillation; E66.9 Obesity, unspecified; G47.30 Sleep apnea, unspecified; Z85.51 Personal history of malignant neoplasm of bladder; Z79.82 Long term (current) use of aspirin; Z79.899 Other long term (current) drug therapy; Z90.49 Acquired absence of other specified parts of digestive tract; Z90.89 Acquired absence of other organs; Z95.0 Presence of cardiac pacemaker; Z95.4 Presence of other heart-valve replacement; Z95.5 Presence of coronary angioplasty implant and graft; Z98.890 Other specified postprocedural states; Z68.34 Body mass index [BMI] 34.0-34.9, adult; Z88.2 Allergy status to sulfonamides; Z88.8 Allergy status to other drugs, medicaments and biological substances; Z80.9 Family history of malignant neoplasm, unspecified
CPT/HCPCS: 36415; 80048; 82803; 82948; 85014; 85025; 85610; 85730; 93005; 93460; 93567; 99152; 99153; A6258; A6402; C1725; C1751; C1769; J1644; J2001; J2250; J3010; J3490; J7030; J7070; Q0163; Q9967; Z7610; A6449

== ENCOUNTER 2024-02-05 08:40 | Day surgery (SDC) | payer MEDICARE, BC ==
[~2024-02-05] VITALS: Ht 175.3 cm; Wt 111.5 kg
[2024-02-05] VITALS (24 sets, daily range): BP systolic 91–134; BP diastolic 38–62; PULSE 73–89; RESP 11–22; TEMP 97.2; O2SAT 92–99
[~2024-02-05 08:40] MED LIST changes: -ALBU18HF2 INH; +CHOL500044 PO; +CYAN250010 PO; -ERGO50002 PO; +FOLI1TAB2 PO; +FURO80TA3 PO; -MULT-1085 PO; -POTA-366 PO; +SIMV-42 PO; -SIMV10TA98 PO; -TIOT4MIS3 PO; -VITA-268 PO; +olodaterol INH
[2024-02-05] MEDS ORDERED: atropine 0.1mg/ml 10ml syringe IV ONE (09:30)
[2024-02-05] MEDS ORDERED: LORazepam 0.5 MG tablet PO ONE (09:30)
[2024-02-05] MEDS ORDERED: amiodarone 150mg/dext, iso-os 100 ML IV ONE (09:30)
[2024-02-05] MEDS ORDERED: diphenhydrAMINE 25mg capsule PO ONE (09:30)
[2024-02-05] MEDS ORDERED: CHOL500049 PO (11:13)
[2024-02-05] MEDS ORDERED: LACT1CAP65 PO (11:13)
[2024-02-05] MEDS ORDERED: CARV12.5 PO (11:13)
[2024-02-05] MEDS ORDERED: POTA-197 PO (11:13)
[2024-02-05] MEDS: morphine 10mg/ml inj. IV ONE (11:16)
[2024-02-05] MEDS: normal saline 1000ml 1,000 ML IV SCH (11:16)
[2024-02-05] MEDS: MIDAZolam 1mg/ml 10ml vial IV ONE (11:16)
[2024-02-05 12:41] LABS: ALBUMIN 3.4 G/DL (3.4-5.0); ANION GAP 11 (8-16); BLOOD UREA NITROGEN 31 MG/DL (7-18); BUN/CREATININE RATIO 18.2 (10.0-20.0); CALCIUM 9.1 MG/DL (8.5-10.1); CHLORIDE 109 MMOL/L (99-107); GLUCOSE 91 MG/DL (70-104); POTASSIUM 3.6 MMOL/L (3.5-5.1); PRO BRAIN NATRIURETIC PEPTIDE 1602 PG/ML (0-450); SODIUM 147 MMOL/L (135-145); TOTAL CARBON DIOXIDE 27.4 MMOL/L (24-32); eCRCL 32 ML/MIN; eGFR 38 ML/MIN
== END 2024-02-05 13:35 | disposition home or self-care (01) ==
LOC: SSTAY O 08:40
PROVIDERS: ATTEND Internal Medicine Cardiovascular Disease
DX: I34.2 Nonrheumatic mitral (valve) stenosis (principal); I12.9 Hypertensive chronic kidney disease with stage 1 through stage 4 chronic kidney disease, or unspecified chronic kidney disease; E11.22 Type 2 diabetes mellitus with diabetic chronic kidney disease; N18.9 Chronic kidney disease, unspecified; I25.10 Atherosclerotic heart disease of native coronary artery without angina pectoris; I48.91 Unspecified atrial fibrillation; I49.5 Sick sinus syndrome; E78.5 Hyperlipidemia, unspecified; Z95.818 Presence of other cardiac implants and grafts; Z90.49 Acquired absence of other specified parts of digestive tract; Z90.89 Acquired absence of other organs; Z88.8 Allergy status to other drugs, medicaments and biological substances; Z79.82 Long term (current) use of aspirin; Z79.899 Other long term (current) drug therapy; Z98.890 Other specified postprocedural states
CPT/HCPCS: 36415; 80048; 82948; 83880; 93325; 94760; C8925; J2250; J2270; J7030; 93312; J2274

== ENCOUNTER 2024-05-05 12:42 | Emergency (ER) | payer MEDICARE, BC ==
[~2024-05-05] VITALS: Ht 175.3 cm; Wt 108.0 kg
[~2024-05-05 12:42] MED LIST changes: +CARV12.5 PO; -CARV25TA2 PO; -CHOL500044 PO; +CHOL500049 PO; -FURO40TA4 PO; +LACT1CAP65 PO; +POTA-197 PO
[2024-05-05] MEDS: ondansetron 4mg rapidly disintigrating tab PO ONE (13:55)
[2024-05-05] MEDS: acetaminophen 325mg tablet PO ONE (13:55)
[2024-05-05 14:31] VITALS: BP 104/47; PULSE 73; RESP 16; TEMP 97.9; O2SAT 95
== END 2024-05-05 14:40 | disposition home or self-care (01) ==
LOC: ER 12:42
DX: S06.0XAA Concussion with loss of consciousness status unknown, initial encounter (principal); S00.03XA Contusion of scalp, initial encounter; M54.2 Cervicalgia; I13.0 Hypertensive heart and chronic kidney disease with heart failure and stage 1 through stage 4 chronic kidney disease, or unspecified chronic kidney disease; I50.9 Heart failure, unspecified; N18.9 Chronic kidney disease, unspecified; I25.10 Atherosclerotic heart disease of native coronary artery without angina pectoris; I48.91 Unspecified atrial fibrillation; E78.00 Pure hypercholesterolemia, unspecified; E11.22 Type 2 diabetes mellitus with diabetic chronic kidney disease; G47.30 Sleep apnea, unspecified; J44.9 Chronic obstructive pulmonary disease, unspecified; G89.29 Other chronic pain; M54.9 Dorsalgia, unspecified; Z90.49 Acquired absence of other specified parts of digestive tract; Z95.0 Presence of cardiac pacemaker; Z85.89 Personal history of malignant neoplasm of other organs and systems; Z88.2 Allergy status to sulfonamides; Z88.5 Allergy status to narcotic agent; Z79.82 Long term (current) use of aspirin; Z79.899 Other long term (current) drug therapy; W07.XXXA Fall from chair, initial encounter; Y93.89 Activity, other specified; Y92.89 Other specified places as the place of occurrence of the external cause; Y99.8 Other external cause status
CPT/HCPCS: 70450; 72125; 72128; 99284

== ENCOUNTER 2024-05-09 10:50 | Emergency (ER) | payer OTHER, MEDICARE, BC ==
[~2024-05-09] VITALS: Ht 177.8 cm; Wt 110.7 kg
[2024-05-09] MEDS ORDERED: LIDOcaine 1% w/epiNEPHrine 1:200,000 30ml vial SQ STA (11:50)
[2024-05-09] MEDS ORDERED: LIDOcaine 1% W/epiNEPHrine 1:200,000 10ml vial SQ STA (11:56)
[2024-05-09] MEDS: LIDOCAINE 1%/EPI 1:100,000 inj. 10 ML multi-dose vial SQ STA (12:01)
[2024-05-09 14:40] VITALS: BP 104/60; PULSE 80; RESP 14; TEMP 98; O2SAT 98
== END 2024-05-09 14:42 | disposition home or self-care (01) ==
LOC: ER 10:51
DX: S61.411A Laceration without foreign body of right hand, initial encounter (principal); J44.9 Chronic obstructive pulmonary disease, unspecified; I13.0 Hypertensive heart and chronic kidney disease with heart failure and stage 1 through stage 4 chronic kidney disease, or unspecified chronic kidney disease; I50.9 Heart failure, unspecified; N18.9 Chronic kidney disease, unspecified; I48.91 Unspecified atrial fibrillation; G89.29 Other chronic pain; I25.10 Atherosclerotic heart disease of native coronary artery without angina pectoris; E11.22 Type 2 diabetes mellitus with diabetic chronic kidney disease; C7A.00 Malignant carcinoid tumor of unspecified site; E78.00 Pure hypercholesterolemia, unspecified; G47.30 Sleep apnea, unspecified; Z88.2 Allergy status to sulfonamides; Z88.5 Allergy status to narcotic agent; Z79.82 Long term (current) use of aspirin; Z79.899 Other long term (current) drug therapy; Z90.49 Acquired absence of other specified parts of digestive tract; Z95.0 Presence of cardiac pacemaker; Z87.19 Personal history of other diseases of the digestive system; W01.0XXA Fall on same level from slipping, tripping and stumbling without subsequent striking against object, initial encounter; Y93.89 Activity, other specified; Y92.89 Other specified places as the place of occurrence of the external cause; Y99.8 Other external cause status
CPT/HCPCS: 12002; 73110; 99284; J7030; A6449

== ENCOUNTER 2024-08-19 10:23 | Emergency (ER) | payer OTHER, MEDICARE, BC ==
[~2024-08-19] VITALS: Ht 175.3 cm; Wt 112.5 kg
[2024-08-19 10:46] VITALS: TEMP 97.8
[2024-08-19 10:59] LABS: BASOPHILS # (AUTO) 0.1 X10'3 (0-0.2); BASOPHILS % (AUTO) 1.6 % (0-1); EOSINOPHILS # (AUTO) 0.3 X10'3 (0-0.9); EOSINOPHILS % (AUTO) 4.6 % (0-6); HEMATOCRIT 37.5 % (42.0-52.0); HEMOGLOBIN 12.3 g/dl (14.0-17.9); LYMPHOCYTES # (AUTO) 1.7 X10'3 (1.1-4.8); LYMPHOCYTES % (AUTO) 27.5 % (21-51); MEAN CORPUSCULAR HEMOGLOBIN 31.8 PG (27.0-31.0); MEAN CORPUSCULAR HGB CONC 32.8 g/dL (33.0-36.5); MEAN PLATELET VOLUME 7.7 FL (7.4-10.4); MONOCYTES # (AUTO) 0.4 X10'3 (0-0.9); MONOCYTES % (AUTO) 7.2 % (2-12); NEUTROPHILS # (AUTO) 3.6 X10'3 (1.8-7.7); NEUTROPHILS % (AUTO) 59.1 % (42-75); PLATELET COUNT 205 X10'3 (140-440); RED BLOOD COUNT 3.87 X10'6 (4.70-6.10); RED CELL DISTRIBUTION WIDTH 15.2 % (11.5-14.5); WHITE BLOOD COUNT 6.1 X10'3 (4.5-11.0)
[2024-08-19 11:40] LABS: ALANINE AMINOTRANSFERASE 20 U/L (12-78); ALBUMIN/GLOBULIN RATIO 0.9 (1.1-1.5); ALKALINE PHOSPHATASE 86 IU/L (46-116); ANION GAP 8 (8-16); ASPARTATE AMINO TRANSFERASE 15 U/L (10-37); BILIRUBIN,TOTAL 0.6 MG/DL (0.1-1.0); BLOOD UREA NITROGEN 29 MG/DL (7-18); BUN/CREATININE RATIO 17.4 (10.0-20.0); CALCIUM 8.9 MG/DL (8.5-10.1); CHLORIDE 107 MMOL/L (99-107); CREATININE 1.67 MG/DL (0.60-1.10); GLUCOSE 119 MG/DL (70-104); POTASSIUM 3.9 MMOL/L (3.5-5.1); PRO BRAIN NATRIURETIC PEPTIDE 1592 PG/ML (0-450); SODIUM 145 MMOL/L (135-145); TOTAL CARBON DIOXIDE 30.2 MMOL/L (24-32); TOTAL PROTEIN 8.3 G/DL (6.4-8.2); eCRCL 32 ML/MIN; eGFR 39 ML/MIN
[2024-08-19 14:06] VITALS: BP 114/59; PULSE 77; RESP 17; O2SAT 95
== END 2024-08-19 14:11 | disposition home or self-care (01) ==
LOC: ER 10:23
DX: R07.89 Other chest pain (principal); I13.0 Hypertensive heart and chronic kidney disease with heart failure and stage 1 through stage 4 chronic kidney disease, or unspecified chronic kidney disease; E11.22 Type 2 diabetes mellitus with diabetic chronic kidney disease; I50.9 Heart failure, unspecified; N18.9 Chronic kidney disease, unspecified; E78.00 Pure hypercholesterolemia, unspecified; G47.30 Sleep apnea, unspecified; I25.10 Atherosclerotic heart disease of native coronary artery without angina pectoris; I48.91 Unspecified atrial fibrillation; J44.9 Chronic obstructive pulmonary disease, unspecified; Z88.5 Allergy status to narcotic agent; Z88.2 Allergy status to sulfonamides; Z95.0 Presence of cardiac pacemaker; Z95.1 Presence of aortocoronary bypass graft; Z90.49 Acquired absence of other specified parts of digestive tract; Z79.82 Long term (current) use of aspirin
CPT/HCPCS: 36415; 71045; 80053; 83880; 84484; 85025; 93005; 99285

== ENCOUNTER 2024-09-06 14:42 | Outpatient (CLI) | payer OTHER, MEDICARE, BC ==
[~2024-09-06 14:42] MED LIST changes: +barium sulfate 340gm for oral suspension 1 BOTTLE SUSP.RECON PO ONE
== END 2024-09-06 23:59 | disposition home or self-care (01) ==
LOC: RAD 14:42
PROVIDERS: ATTEND Internal Medicine
DX: K21.9 Gastro-esophageal reflux disease without esophagitis (principal); R13.10 Dysphagia, unspecified; Z01.89 Encounter for other specified special examinations; K44.9 Diaphragmatic hernia without obstruction or gangrene
CPT/HCPCS: 74220

== ENCOUNTER 2024-11-05 14:24 | Emergency (ER) | payer OTHER, MEDICARE, BC ==
[~2024-11-05] VITALS: Ht 177.8 cm; Wt 106.8 kg
[~2024-11-05 14:24] MED LIST changes: -barium sulfate 340gm for oral suspension 1 BOTTLE SUSP.RECON PO ONE
--- NOTE | 2024-11-05 16:38 | VASCULAR REPORT ---
PROCEDURE: [facility] VENOUS Exam Date: 11/05/2024 03:51 PM History: Leg pain Technique: Duplex Doppler evaluation of the superficial veins of the right and left lower extremities was perfor med including color Doppler and spectral/pulsed waveform analysis. Findings: Measurements of the lower extremity superficial veins in millimeters (mm) are provided below. No deep venous thrombosis of the left lower extremity. Impression: 1. No DVT
--- NOTE | 2024-11-05 17:05 | Physician Documentation ---
History of Present Illness ~ Chief Complaint: Leg Pain Stated Complaint: POSS DVT IN L LEG Time Seen by MD: 16:19 Primary Medical Doctor: Dr. Canales Mode of Arrival: POV, Ambulatory HPI This pleasant 84-year-old male fell three days ago after tripping over his right foot and falling onto his right arm. Initially he did not feel much pain except for in his right shoulder but two days after restarting have more pain in his left hip in his has been having some numbness and weakness in the left leg. Today he has had difficulty bearing weight on the left side and has numbness from the knee down over the anterior thigh. Has noticed some swelling in the left foot as well. According to the patient he was sent here from the [facility] for e valuation of a blood clot. Denies any chest pain or shortness of breath states he wants to go home Patient according [facility]. He has a history of type 2 diabetes chronic kidney disease hypertension He states that his pain seems like it is getting better. He always has difficulty walking. [facility] to help with the pain after his fall which has been unable to pickle solution maker as a yet Day of Onset: Nov 05, 2024 Tetanus witin 5 years: No Medication Reconciliation Allergies: Coded Allergies: Sulfa (Sulfonamide Antibiotics) (Verified Allergy, Unknown, DOES SOMETHING TO MY BLOOD CELLS, 08/19/24) oxycodone (Verified Adverse Reaction, Unknown, NIGHTMARES WHILE AWAKE, 08/19/24) Scheduled Allopurinol (Allopurinol), 300 MG PO QPM, (Reported) Aspirin (Aspirin EC), 1 TAB PO DAILY, (Reported) Azithromycin (Zithromax), 1 TAB PO MON/MON/FRI, (Reported) Carvedilol (Coreg), 1 TAB PO BID, (Reported) Cetirizine HCl (Cetirizine HCl), 1 TAB PO DAILY, (Reported) Cholecalciferol (Vitamin D3) (Vitamin D3), 1 CAP PO DAILY, (Reported) Clopidogrel Bisulfate (Clopidogrel), 1 TABLET PO Q48H, (Reported) Cyanocobalamin (Vitamin B-12) (Vitamin B12), Unknown Dose PO DAILY, (Reported) Folic Acid/Multivits-Min/Lut (Centrum Silver Chewable Tablet), 1 TAB PO DAILY, (Reported) Furosemide (Furosemide), 1 TAB PO PM, (Reported) Lactobacillus Acidophilus (Probiotic), 1 EACH PO DAILY, (Reported) Magnesium Oxide (Magnesium), 1 TAB PO DAILY, (Reported) [place]-3/Dha/Epa/Fish Oil (Fish Oil 1,000 mg Softgel), 2 CAP PO BID, (Reported) Omeprazole (Omeprazole), 1 CAP PO RODRÍGUEZ,T,TH,SAT, (Reported) Potassium Chloride (Potassium Chloride), 1 TAB PO AM, (Reported) Potassium Chloride (Klor-Con M20), 2 TAB PO PM, (Reported) Semaglutide (Ozempic), 1 MG SQ Q7D, (Reported) Simvastatin* (Zocor*), 1 TAB PO DAILY, (Reported) Spironolactone (Spironolactone), 1 TAB PO MON/WED/FRI, (Reported) [olodaterol], 2 PUFFS INH DAILY, (Reported) Past Medical History Past Medical History: Atrial Fibrillation, Coronary Artery Disease, Congestive Heart Failure, High Cholesterol, Hypertension, Valve Insuffciency, COPD, Sleep Apnea, Diverticulosis, Hemorrhoids, Chronic Kidney Disease, Renal Disease, Diabetes, Chronic Back Pain, Gout Past Surgical History: angioplasty, cholecystectomy, heart valve surgery, orthopedic surgeries, pacemaker, other Patient History: (Cancer) Malignant carcinoid tumor FATHER, , Age: 69, Cause: Cancer, Onset:Unknown FH: pneumonia MOTHER, , Age: 87, Cause: Pneumonia Other Past Family History: hypertension, cancer, CVA Alcohol Use: Rarely Drug Use: none Lives with: Mother, Spouse Lives In: Home Occupation: retired Review of Systems All Other Systems at this time: Reviewed and Negative ROS As stated above in the HPI, otherwise all systems are reviewed and negative. Physical Exam Vital Signs: Temperature: 97.8, Source: Temporal, Heart Rate: 79, Respiratory Rate: 16, BP: 115/65, Pulse Oximetry: 96, Weight: 106.820 Physical Exam General: Alert, no apparent distress. HEENT: PERRL, EOMI, no injection, moist mucous membranes. Respiratory: Lungs clear, no respiratory distress. Chest: No accessory muscle use. Cardiovascular: Regular rate and rhythm, no murmurs. Gastrointestinal: Soft, nontender, nondistended. Bowels sounds present. Extremities: Tender to the left hip. Neurologic: Oriented x4. Psychiatric: Normal mood and affect. Skin: Normal color, warm and dry. No edema, no ecchymosis. Progress Results/Orders Results/Orders Orders - JOSE MENA NP Vl Venous (11/05/24 14:58) Completed Orders - JOSE MENA NP Vl Venous (11/05/24 14:58) Vital Signs 11/05/24 11/05/24 11/05/24 11/05/24 14:25 16:12 17:29 17:59 Temp 97.8 97.8 97.8 Pulse 79 74 66 Resp 16 16 18 16 B/P (MAP) 115/65 123/73 (90) 134/78 Pulse Ox 96 98 98 O2 Flow Rate 0 Medical Decision Making Findings Patient does not present has one who has deviated from his baseline other than pain from a recent fall. According to vascular ultrasound there was no sign of DVT. After discussing with him at length about a safety plan he states that he stays with his in his well cared for. His daughter who is at bedside agrees that he seems safe to go home. Based on his decreased pain levels and [facility] I am going to safely discharge patient for home care and further workups in the outpatient setting Departure Disposition: HOME / SELF CARE / HOMELESS Impression: Primary Impression: Superficial bruising Additional Impression: Lower extremity sprain Condition: Stable Discharge Instructions: Fall Prevention in the Home, Adult, [id number]-[id number], Muscle Strain, [id number] Referrals: NO PRIMARY CARE PROVIDER (PCP) Signature Scribe Signature: b Attestation: The note accurately reflects work and decisions made by me.Jose Rae NP 11/05/24 18:16 JOSE MENA NP Nov 05, 2024 17:05
[2024-11-05 17:59] VITALS: BP 134/78; PULSE 66; RESP 16; TEMP 97.8; O2SAT 98
== END 2024-11-05 18:06 | disposition home or self-care (01) ==
LOC: ER 14:25
DX: S73.102A Unspecified sprain of left hip, initial encounter (principal); I13.0 Hypertensive heart and chronic kidney disease with heart failure and stage 1 through stage 4 chronic kidney disease, or unspecified chronic kidney disease; E11.22 Type 2 diabetes mellitus with diabetic chronic kidney disease; N18.9 Chronic kidney disease, unspecified; I50.9 Heart failure, unspecified; C7A.00 Malignant carcinoid tumor of unspecified site; E78.00 Pure hypercholesterolemia, unspecified; G47.30 Sleep apnea, unspecified; I25.10 Atherosclerotic heart disease of native coronary artery without angina pectoris; I48.91 Unspecified atrial fibrillation; J44.9 Chronic obstructive pulmonary disease, unspecified; Z88.2 Allergy status to sulfonamides; Z88.5 Allergy status to narcotic agent; Z88.6 Allergy status to analgesic agent; Z88.8 Allergy status to other drugs, medicaments and biological substances; Z90.49 Acquired absence of other specified parts of digestive tract; Z95.0 Presence of cardiac pacemaker; W01.0XXA Fall on same level from slipping, tripping and stumbling without subsequent striking against object, initial encounter; Y93.89 Activity, other specified; Y92.89 Other specified places as the place of occurrence of the external cause; Y99.8 Other external cause status
CPT/HCPCS: 93971; 99284

== ENCOUNTER 2024-12-11 12:59 | Emergency (ER) | payer OTHER, MEDICARE, BC ==
[~2024-12-11] VITALS: Ht 182.9 cm; Wt 110.0 kg
--- NOTE | 2024-12-11 13:43 | RADIOLOGY REPORT ---
CLINICAL INDICATION: LT.KNEE PAIN TECHNIQUE: 3 radiographic views of the left knee were obtained. Comparison: None FINDINGS/IMPRESSION: There is no evidence of acute fracture or dislocation. Severe tricompartmental knee joint osteoarthrosis.
--- NOTE | 2024-12-11 13:51 | RADIOLOGY REPORT ---
CLINICAL INDICATION: RT.Shoulder Pain TECHNIQUE: DI SHOULDER, COMPLETE (MIN 2 VWS) Comparison: None FINDINGS/IMPRESSION: : There is no evidence of acute fracture or dislocation. Soft tissues are unremarkable. Osteopenia. Degenerative changes of the shoulder joint.
--- NOTE | 2024-12-11 13:52 | RADIOLOGY REPORT ---
CLINICAL INDICATION: LT.HIP PAIN TECHNIQUE: DI HIP UNILATERAL 2 VIEWS Comparison: None FINDINGS/IMPRESSION: : There is no evidence of acute fracture or dislocation. Soft tissues are unremarkable. Moderate to severe degenerative changes of bilateral hips.
[2024-12-11] MEDS: morphine 4 MG/ML inj SYRINge IV ONE (14:16)
[2024-12-11] MEDS: morphine 4 MG/ML inj SYRINge IM ONE (14:18)
[2024-12-11 14:21] VITALS: BP 114/53; PULSE 71; RESP 15; TEMP 98; O2SAT 98
--- NOTE | 2024-12-11 14:38 | Physician Documentation ---
History of Present Illness ~ Chief Complaint: Mechanical Fall Stated Complaint: FALL Time Seen by MD: 13:02 Primary Medical Doctor: Dr. Canales Mode of Arrival: EMS HPI This very pleasant 84-year-old male presents to the ED after having a fall today. Patient is on blood thinners denies any head strikes reports pain in his right shoulder left knee and left hip. Patient states he is able to ambulate. He he was supposed to be using a walker but today chose not to which precipit ated his fall. Patient has a alert oriented and cooperative during the interview. Day of Fall: Dec 11, 2024 Tetanus within 5 Years?: No Medication Reconciliation Allergies: Coded Allergies: Sulfa (Sulfonamide Antibiotics) (Verified Allergy, Unknown, DOES SOMETHING TO MY BLOOD CELLS, 08/19/24) oxycodone (Verified Adverse Reaction, Unknown, NIGHTMARES WHILE AWAKE, 08/19/24) Scheduled Allopurinol (Allopurinol), 300 MG PO QPM, (Reported) Aspirin (Aspirin EC), 1 TAB PO DAILY, (Reported) Azithromycin (Zithromax), 1 TAB PO MON/MON/MON, (Reported) Carvedilol (Coreg), 1 TAB PO BID, (Reported) Cetirizine HCl (Cetirizine HCl), 1 TAB PO DAILY, (Reported) Cholecalciferol (Vitamin D3) (Vitamin D3), 1 CAP PO DAILY, (Reported) Clopidogrel Bisulfate (Clopidogrel), 1 TABLET PO Q48H, (Reported) Cyanocobalamin (Vitamin B-12) (Vitamin B12), Unknown Dose PO DAILY, (Reported) Folic Acid/Multivits-Min/Lut (Centrum Silver Chewable Tablet), 1 TAB PO DAILY, (Reported) Furosemide (Furosemide), 1 TAB PO PM, (Reported) Lactobacillus Acidophilus (Probiotic), 1 EACH PO DAILY, (Reported) Magnesium Oxide (Magnesium), 1 TAB PO DAILY, (Reported) [place]-3/Dha/Epa/Fish Oil (Fish Oil 1,000 mg Softgel), 2 CAP PO BID, (Reported) Omeprazole (Omeprazole), 1 CAP PO RODRÍGUEZ,T,TH,SAT, (Reported) Potassium Chloride (Potassium Chloride), 1 TAB PO AM, (Reported) Potassium Chloride (Klor-Con M20), 2 TAB PO PM, (Reported) Semaglutide (Ozempic), 1 MG SQ Q7D, (Reported) Simvastatin* (Zocor*), 1 TAB PO DAILY, (Reported) Spironolactone (Spironolactone), 1 TAB PO MON/MON/FRI, (Reported) [olodaterol], 2 PUFFS INH DAILY, (Reported) Past Medical History Past Medical History: Atrial Fibrillation, Coronary Artery Disease, Congestive Heart Failure, High Cholesterol, Hypertension, Valve Insuffciency, COPD, Sleep Apnea, Diverticulosis, Hemorrhoids, Chronic Kidney Disease, Renal Disease, Diabetes, Chronic Back Pain, Gout Past Surgical History: angioplasty, cholecystectomy, heart valve surgery, orthopedic surgeries, pacemaker, other Patient History: (Cancer) Malignant carcinoid tumor FATHER, , Age: 69, Cause: Cancer, Onset:Unknown FH: pneumonia MOTHER, , Age: 87, Cause: Pneumonia Other Past Family History: hypertension, cancer, CVA Alcohol Use: Rarely Drug Use: none Lives with: Mother, Spouse Lives In: Home Occupation: retired Review of Systems All Other Systems at this time: Reviewed and Negative ROS As stated above in the HPI, otherwise all systems are reviewed and negative. Physical Exam Vital Signs: Temperature: 98.0, Source: Temporal, Heart Rate: 71, Respiratory Rate: 15, BP: 114/53, Pulse Oximetry: 98, Weight: 110.000 Oxygen Flow Rate: 0 Physical Exam General: Alert, no apparent distress. back: tender lower back to palpation Respiratory: Lungs clear, no respiratory distress. Gastrointestinal: Soft, nontender, nondistended. Bowels sounds present. Extremities: Normal range of motion, no deformity. tender right shoulder Neurologic: Oriented x4. Psychiatric: Normal mood and affect. Skin: Normal color, warm and dry. No edema, no ecchymosis. Progress Results/Orders Results/Orders Orders - JOSE MORRIS ASTRONOMY INSTRUCTOR Knee, Complete (12/11/24 13:03) Shoulder, Complete (Min 2 Vws) (12/11/24 13:03) Hip Unilateral 2 Views (12/11/24 13:03) Completed Orders - JOSE MORRIS ASTRONOMY INSTRUCTOR Knee, Complete (12/11/24 13:03) Shoulder, Complete (Min 2 Vws) (12/11/24 13:03) Hip Unilateral 2 Views (12/11/24 13:03) Morphine 4mg/Ml Inj. (Morphine Inj.) (12/11/24 14:05) Morphine 4mg/Ml Inj. (Morphine Inj.) (12/11/24 14:15) Medications Received in ER Medications (Trade) Dose Ordered Sig/Jeanine Route PRN Reason Start Time Stop Time Status Last Admin Dose Admin (morphine inj.) 4 mg ONCE ONCE IM 12/11/24 14:15 12/11/24 14:16 DC 12/11/24 14:18 4 MG Vital Signs 12/11/24 12/11/24 12/11/24 12/11/24 13:01 14:18 14:21 14:23 Temp 98.0 98.0 Pulse 86 71 Resp 16 16 15 B/P (MAP) 127/53 114/53 (73) Pulse Ox 95 98 O2 Flow Rate 0 0 Medical Decision Making Findings This patient's x-rays did not show any signs of acute fracture per my interpret ation. Radiologist's also echoes these findings. The patient has Carpenter at home that he can take for pain management. I did offer to give him a shot of morphine here to help with any breakthrough pain. Patient has his at bedside along with his daughter who help with care at home. 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 At this juncture, I do not see any reason to pursue any further imaging at this time I am going to discharge him home for further evaluation in the outpatient setting Differential Dx:Considerations: Include: Closed head injury, Cardiac injury, Fracture(s), Intraabdominal injury, Pneumothorax, Cerebral contusion, Pulmonary contusion, Spine injury, Tracheal injury, Urological injury, Vascular injury, Abrasion(s), Contusion(s), Foreign body(s), Hematoma(s), Laceration(s), Encephalopathy, Other Departure Disposition: 01 HOME / SELF CARE / HOMELESS Impression: Primary Impression: Fall Additional Impression: Hip pain Condition: Stable Discharge Instructions: Fall Prevention in the Home, Adult, [id number] Additional Instructions: Instructed you did not visualize any acute fractures in your hip knee or right shoulder.. Take meds as prescribed. You can use ice packs for 20 minute intervals Referrals: NO PRIMARY CARE PROVIDER (PCP) Education Educated: Patient Educated regarding: diagnosis Signature Scribe Signature: v Attestation: Scribed for Jose Morris Np by Jose Rae NP . 12/11/24 14:33 JOSE MORRIS NP Dec 11, 2024 14:38
== END 2024-12-11 15:00 | disposition home or self-care (01) ==
LOC: ER 12:59
DX: M25.552 Pain in left hip (principal); M25.511 Pain in right shoulder; M25.562 Pain in left knee; E11.22 Type 2 diabetes mellitus with diabetic chronic kidney disease; E78.00 Pure hypercholesterolemia, unspecified; G47.30 Sleep apnea, unspecified; I13.0 Hypertensive heart and chronic kidney disease with heart failure and stage 1 through stage 4 chronic kidney disease, or unspecified chronic kidney disease; I50.9 Heart failure, unspecified; N18.9 Chronic kidney disease, unspecified; I25.10 Atherosclerotic heart disease of native coronary artery without angina pectoris; I48.91 Unspecified atrial fibrillation; J44.9 Chronic obstructive pulmonary disease, unspecified; Z88.2 Allergy status to sulfonamides; Z88.5 Allergy status to narcotic agent; Z88.6 Allergy status to analgesic agent; Z88.8 Allergy status to other drugs, medicaments and biological substances; Z90.49 Acquired absence of other specified parts of digestive tract; Z95.0 Presence of cardiac pacemaker; Z79.82 Long term (current) use of aspirin
CPT/HCPCS: 73030; 73502; 73564; 96372; 99284; J2270